=== PATIENT | male | born 1965 | race Caucasian/White ===

== ENCOUNTER 2020-02-14 14:34 | Outpatient (REF) | payer OTHER, SELFPAY | END 2020-02-14 14:35 | disposition home or self-care (01) | LOC: HO.LAB 14:34 | PROVIDERS: PCP Internal Medicine; Visit Provider Internal Medicine | DX: Z20.828 Contact with and (suspected) exposure to other viral communicable diseases (principal) | CPT/HCPCS: 87635 ==

== ENCOUNTER 2020-11-28 08:41 | Outpatient (REF) | payer OTHER, SELFPAY ==
[2020-11-28 11:12] LABS: MANUAL DIFF FLAG NO
[2020-11-28 11:24] LABS: Basophils Percent Auto 0.7 % (0-2); Eosinophils Absolute Auto 0.2 X10*3/uL (0.0-0.4); Eosinophils Percent Auto 5.9 % (0-4); Hematocrit 37.4 % (42-52); Hemoglobin 13.5 g/dl (14.0-18.0); Imm Gran Abs Auto 0.03 X10*3/uL (0.00-0.03); Imm Gran Pct Auto 1.1 % (0.0-0.4); Lymphocytes Percent Auto 37.9 % (20-40); Mean Corpuscular HGB Conc 36.1 g/dl (31.0-36.0); Mean Corpuscular Hemoglobin 32.9 pg (27.0-33.0); Mean Corpuscular Volume 91.2 fL (80-98); Mean Platelet Volume 10.6 fL (9.4-12.4); Monocytes Absolute Auto 0.3 X10*3/uL (0.1-1.2); Monocytes Percent Auto 12.3 % (2-11); Neutrophils Absolute Auto 1.1 X10*3/uL (2.0-8.3); Neutrophils Percent Auto 42.1 % (45-73); Platelet Count 186 X10*3/uL (160-400); Red Cell Distribution Width 11.6 % (11.0-16.0); White Blood Count 2.7 X10*3/uL (4.8-10.8)
[2020-11-28 11:33] LABS: Estimated Average Glucose 91 mg/dL; Hemoglobin A1c % 4.8 %
[2020-11-28 11:40] LABS: Alanine Aminotransferase 34 U/L (0-40); Albumin Level 4.4 g/dL (3.5-5.0); Alkaline Phosphatase 80 U/L (39-117); Anion Gap 12 (12-20); Aspartate Amino Transferase 31 U/L (5-37); Bilirubin Total 0.6 mg/dL (0.0-1.0); Blood Urea Nitrogen 19 mg/dL (9-16); Calcium 9.4 mg/dL (8.4-10.2); Carbon Dioxide 24 mmol/L (22-29); Chloride 105 mmol/L (96-108); Cholesterol 172 mg/dL; Estimated Glomerular Filt Rate > 60; Glucose Random 100 mg/dL (60-115); HDL Cholesterol 30 mg/dL; Potassium 4.4 mmol/L (3.3-5.1); Sodium 137 mmol/L (135-145); Total Protein 7.3 g/dL (6.5-8.0); Triglycerides 454 mg/dL
[2020-11-28 12:02] LABS: Free T4 (Free Thyroxine) 0.82 ng/dL (0.71-1.85); Thyroid Stimulating Hormone 3.47 uIU/mL (0.32-4.0)
[2020-11-28 12:05] LABS: Folate 18.6 ng/mL (> or = 4.0); Vitamin B12 322 pg/mL (200-900)
== END 2020-11-28 08:42 | disposition home or self-care (01) ==
LOC: HO.HMGCLDS 08:41
PROVIDERS: PCP Internal Medicine; Visit Provider Internal Medicine
DX: Z12.5 Encounter for screening for malignant neoplasm of prostate (principal); I10 Essential (primary) hypertension; E78.00 Pure hypercholesterolemia, unspecified; E78.1 Pure hyperglyceridemia; R73.02 Impaired glucose tolerance (oral)
CPT/HCPCS: 36415; 80053; 80061; 82607; 82746; 83036; 84153; 84439; 84443; 85025

== ENCOUNTER 2021-01-29 15:25 | Outpatient (REF) | payer OTHER, SELFPAY ==
--- NOTE | ~2021-01-29 | XR_ITS ---
EXAMINATION: XR RIBS, RIGHT CLINICAL INFORMATION: Injury. Right-sided rib pain. COMPARISON: None TECHNIQUE: 3 views of the right ribs and one view of the chest were obtained. FINDINGS: Lungs are clear. No consolidation, pneumothorax, or pleural effusion. The cardiomediastinal silhouette and pulmonary vasculature are normal. There are healing right posterior lateral eighth and ninth rib fractures. Fracture lines are still seen. There is surrounding bony callus formation. No other rib fracture is seen. There are degenerative changes of the spine. XR/XR ribs RT min 3V w CXR1V IMPRESSION: Healing right posterior lateral eighth and ninth rib fractures.
== END 2021-01-29 15:26 | disposition home or self-care (01) ==
LOC: HO.HMGCX 15:25
PROVIDERS: PCP Internal Medicine; Visit Provider Internal Medicine
DX: Z13.89 Encounter for screening for other disorder (principal)
CPT/HCPCS: 71101

== ENCOUNTER 2021-05-02 08:43 | Outpatient (REF) | payer OTHER, SELFPAY ==
[2021-05-02 09:00] LABS: MANUAL DIFF FLAG NO
[2021-05-02 09:29] LABS: Basophils Percent Auto 0.6 % (0-2); Eosinophils Absolute Auto 0.1 X10*3/uL (0.0-0.4); Eosinophils Percent Auto 3.9 % (0-4); Hemoglobin 12.9 g/dl (14.0-18.0); Imm Gran Abs Auto 0.02 X10*3/uL (0.00-0.03); Imm Gran Pct Auto 0.6 % (0.0-0.4); Immature Retic Fraction 4.7 % (2.3-13.4); Lymphocytes Absolute Auto 1.3 X10*3/uL (1.2-4.9); Lymphocytes Percent Auto 35.4 % (20-40); Mean Corpuscular HGB Conc 35.8 g/dl (31.0-36.0); Mean Corpuscular Hemoglobin 32.9 pg (27.0-33.0); Mean Corpuscular Volume 91.8 fL (80.0-98.0); Mean Platelet Volume 10.7 fL (9.4-12.4); Monocytes Absolute Auto 0.5 X10*3/uL (0.1-1.2); Monocytes Percent Auto 12.9 % (2-11); Neutrophils Absolute Auto 1.7 x10*3/uL (2.0-8.3); Neutrophils Percent Auto 46.6 % (45-73); Platelet Count 185 X10*3/uL (160-400); Red Blood Count 3.92 X10*6/uL (4.60-5.80); Red Cell Distribution Width 11.3 % (11.0-16.0); Retic HGB Equivalent 35.3 pg (30.0-35.0); Reticulocyte Percent 1.9 % (0.5-1.8); Reticulocytes Absolute 0.073 X10*6/uL (0.026-0.095); White Blood Count 3.6 X10*3/uL (4.8-10.8)
[2021-05-02 09:38] LABS: Estimated Average Glucose 91 mg/dL; Hemoglobin A1C 99.9697 umol/L; Hemoglobin A1c % 4.8 %
[2021-05-02 09:52] LABS: Alanine Aminotransferase 38 U/L (0-40); Albumin Level 4.1 g/dL (3.5-5.0); Alkaline Phosphatase 56 U/L (39-117); Anion Gap 10 (12-20); Aspartate Amino Transferase 24 U/L (5-37); Bilirubin Total 0.9 mg/dL (0.0-1.0); Blood Urea Nitrogen 21 mg/dL (9-16); Carbon Dioxide 27 mmol/L (22-29); Chloride 105 mmol/L (96-108); Cholesterol 138 mg/dL; Estimated Glomerular Filt Rate > 60; Glucose Random 104 mg/dL (60-115); HDL Cholesterol 32 mg/dL; Iron 137 mcg/dL (45-160); LDL Cholesterol Calculated 74 mg/dl; Percent Iron Saturation 46 % (15-50); Potassium 4.7 mmol/L (3.3-5.1); Sodium 137 mmol/L (135-145); Total Iron Binding Capacity 297 mcg/dL (228-428); Total Protein 6.6 g/dL (6.5-8.0); Triglycerides 161 mg/dL; Unsaturated Iron Binding 160 ug/dL
[2021-05-02 10:53] LABS: Ferritin 1602 ng/mL (20-250)
== END 2021-05-02 08:44 | disposition home or self-care (01) ==
LOC: HO.LAB 08:43
PROVIDERS: PCP Internal Medicine; Visit Provider Internal Medicine
DX: E78.00 Pure hypercholesterolemia, unspecified (principal); E78.1 Pure hyperglyceridemia; M54.9 Dorsalgia, unspecified; R73.02 Impaired glucose tolerance (oral)
CPT/HCPCS: 36415; 80053; 80061; 82728; 83036; 83540; 85025; 85045

== ENCOUNTER 2021-10-23 08:33 | Outpatient (REF) | payer OTHER, SELFPAY ==
[2021-10-23 09:06] LABS: MANUAL DIFF FLAG NO
[2021-10-23 09:40] LABS: Basophils Percent Auto 1.2 % (0-2); Eosinophils Absolute Auto 0.2 X10*3/uL (0.0-0.4); Eosinophils Percent Auto 4.7 % (0-4); Hematocrit 38.1 % (42.0-52.0); Hemoglobin 13.6 g/dl (14.0-18.0); Imm Gran Abs Auto 0.01 X10*3/uL (0.00-0.03); Imm Gran Pct Auto 0.3 % (0.0-0.4); Immature Retic Fraction 6.3 % (2.3-13.4); Lymphocytes Absolute Auto 1.2 X10*3/uL (1.2-4.9); Lymphocytes Percent Auto 36.5 % (20-40); Mean Corpuscular HGB Conc 35.7 g/dl (31.0-36.0); Mean Corpuscular Hemoglobin 32.5 pg (27.0-33.0); Mean Corpuscular Volume 91.1 fL (80.0-98.0); Mean Platelet Volume 10.7 fL (9.4-12.4); Monocytes Absolute Auto 0.4 X10*3/uL (0.1-1.2); Monocytes Percent Auto 12.8 % (2-11); Neutrophils Absolute Auto 1.5 x10*3/uL (2.0-8.3); Neutrophils Percent Auto 44.5 % (45-73); Platelet Count 211 X10*3/uL (160-400); Red Blood Count 4.18 X10*6/uL (4.60-5.80); Red Cell Distribution Width 11.9 % (11.0-16.0); Reticulocytes Absolute 0.085 X10*6/uL (0.026-0.095); White Blood Count 3.4 X10*3/uL (4.8-10.8)
[2021-10-23 09:55] LABS: Estimated Average Glucose 91 mg/dL; Hemoglobin A1c % 4.8 %
[2021-10-23 10:14] LABS: Alanine Aminotransferase 37 U/L (0-40); Albumin Level 4.4 g/dL (3.5-5.0); Alkaline Phosphatase 56 U/L (39-117); Anion Gap 11 (12-20); Aspartate Amino Transferase 27 U/L (5-37); Blood Urea Nitrogen 15 mg/dL (9-16); Calcium 9.5 mg/dL (8.4-10.2); Carbon Dioxide 27 mmol/L (22-29); Chloride 104 mmol/L (96-108); Cholesterol 169 mg/dL; Estimated Glomerular Filt Rate > 60; Glucose Random 107 mg/dL (60-115); HDL Cholesterol 35 mg/dL; Iron 151 mcg/dL (45-160); LDL Cholesterol Calculated 105 mg/dl; Percent Iron Saturation 50 % (15-50); Potassium 5.2 mmol/L (3.3-5.1); Sodium 137 mmol/L (135-145); Total Iron Binding Capacity 302 mcg/dL (228-428); Total Protein 7.1 g/dL (6.5-8.0); Triglycerides 147 mg/dL; Unsaturated Iron Binding 151 ug/dL
[2021-10-23 10:27] LABS: Ferritin 1076 ng/mL (20-250)
[2021-10-23 10:42] LABS: Folate 17.8 ng/mL (> or = 4.0); Vitamin B12 350 pg/mL (200-900)
== END 2021-10-23 08:34 | disposition home or self-care (01) ==
LOC: HO.LAB 08:33
PROVIDERS: PCP Internal Medicine; Visit Provider Internal Medicine
DX: E78.00 Pure hypercholesterolemia, unspecified (principal); E78.1 Pure hyperglyceridemia; R73.02 Impaired glucose tolerance (oral); R79.89 Other specified abnormal findings of blood chemistry
CPT/HCPCS: 36415; 80053; 80061; 82607; 82728; 82746; 83036; 83540; 85025; 85045

== ENCOUNTER 2022-04-09 10:01 | Outpatient (REF) | payer OTHER, SELFPAY ==
[2022-04-09 12:24] LABS: Free T4 (Free Thyroxine) 0.86 ng/dL (0.71-1.85); Prostate Specific Antigen Scr 0.68 ng/mL (<0.05-4.0); Thyroid Stimulating Hormone 2.49 uIU/mL (0.32-4.0)
== END 2022-04-09 10:02 | disposition home or self-care (01) ==
LOC: HO.HMGCLDS 10:01
PROVIDERS: PCP Internal Medicine; Visit Provider Internal Medicine
DX: I10 Essential (primary) hypertension (principal); Z12.5 Encounter for screening for malignant neoplasm of prostate
CPT/HCPCS: 36415; 84153; 84439; 84443

== ENCOUNTER 2022-10-22 13:14 | Outpatient (REF) | payer OTHER, SELFPAY ==
[2022-10-22 14:26] LABS: Estimated Average Glucose 88 mg/dL; Hemoglobin A1c % 4.7 %
[2022-10-22 14:48] LABS: Cholesterol 139 mg/dL; HDL Cholesterol 34 mg/dL; LDL Cholesterol Calculated 58 mg/dl; Triglycerides 236 mg/dL
[2022-10-22 15:03] LABS: Free T4 (Free Thyroxine) 0.77 ng/dL (0.71-1.85); Thyroid Stimulating Hormone 2.86 uIU/mL (0.32-4.0)
[2022-10-22 15:14] LABS: Folate 12.6 ng/mL (> or = 4.0); Prostate Specific Antigen Scr 0.65 ng/mL (<0.05-4.0); Vitamin B12 325 pg/mL (200-900)
== END 2022-10-22 13:15 | disposition home or self-care (01) ==
LOC: HO.HMGCLDS 13:14
PROVIDERS: PCP Internal Medicine; Visit Provider Internal Medicine
DX: E78.1 Pure hyperglyceridemia (principal); R73.02 Impaired glucose tolerance (oral); E78.00 Pure hypercholesterolemia, unspecified; Z12.5 Encounter for screening for malignant neoplasm of prostate
CPT/HCPCS: 36415; 80061; 82607; 82746; 83036; 84153; 84439; 84443

== ENCOUNTER 2023-07-31 07:35 | Outpatient (REF) | payer OTHER, SELFPAY | END 2023-07-31 07:36 | disposition home or self-care (01) | LOC: HO.LAB 07:35 | PROVIDERS: PCP Internal Medicine; Visit Provider Internal Medicine | DX: Z13.89 Encounter for screening for other disorder (principal) ==

== ENCOUNTER 2023-08-03 07:30 | Outpatient (REF) | payer OTHER, SELFPAY ==
[2023-08-03 07:40] LABS: MANUAL DIFF FLAG NO
[2023-08-03 08:02] LABS: Basophils Percent Auto 0.9 % (0-2); Eosinophils Absolute Auto 0.2 X10*3/uL (0.0-0.4); Eosinophils Percent Auto 3.5 % (0-4); Hematocrit 40.2 % (42.0-52.0); Hemoglobin 14.6 g/dl (14.0-18.0); Imm Gran Abs Auto 0.02 X10*3/uL (0.00-0.03); Imm Gran Pct Auto 0.4 % (0.0-0.4); Lymphocytes Absolute Auto 1.7 X10*3/uL (1.2-4.9); Lymphocytes Percent Auto 38.2 % (20-40); Mean Corpuscular HGB Conc 36.3 g/dl (31.0-36.0); Mean Corpuscular Hemoglobin 32.8 pg (27.0-33.0); Mean Corpuscular Volume 90.3 fL (80.0-98.0); Monocytes Absolute Auto 0.5 X10*3/uL (0.1-1.2); Monocytes Percent Auto 11.4 % (2-11); Neutrophils Absolute Auto 2.1 x10*3/uL (2.0-8.3); Neutrophils Percent Auto 45.6 % (45-73); Platelet Count 230 X10*3/uL (160-400); Red Blood Count 4.45 X10*6/uL (4.60-5.80); Red Cell Distribution Width 11.6 % (11.0-16.0); White Blood Count 4.6 X10*3/uL (4.8-10.8)
[2023-08-03 08:28] LABS: Anion Gap 12 (12-20); Blood Urea Nitrogen 18 mg/dL (9-16); Calcium 9.4 mg/dL (8.4-10.2); Carbon Dioxide 28 mmol/L (22-29); Chloride 108 mmol/L (96-108); Estimated Glomerular Filt Rate > 60; Glucose Random 106 mg/dL (60-115); Potassium 4.7 mmol/L (3.3-5.1); Sodium 143 mmol/L (135-145)
== END 2023-08-03 07:31 | disposition home or self-care (01) ==
LOC: HO.LAB 07:30
PROVIDERS: PCP Internal Medicine; Visit Provider Internal Medicine
DX: Z01.818 Encounter for other preprocedural examination (principal)
CPT/HCPCS: 36415; 80048; 85025

== ENCOUNTER 2023-08-06 13:34 | Outpatient (AMB) | payer OTHER, SELFPAY ==
--- NOTE | 2023-08-06 13:00 | MHC.PC.OV ---
Vital Signs 08/06/23 13:03 Height 5 ft 8 in Weight 171 lb 0.2 oz BMI 26.0 BP 132/64 Blood Pressure Location Lt brachial Position Sitting Pulse 90 Pulse Source Pulse Oximeter Pulse Oximetry (%) 97 Oxygen Delivery Method Room Air Intake Visit Reasons: cataract on left eye 08/20/23 Intake Note: Patient is here for a Pre-op for Cataract on LEFT EYE scheduled with Pam Phipps M.D on 08/20/2023 Allergies Bee stings Allergy (Intermediate, Uncoded 08/06/23 13:03) Rash Penicillin Allergy (Intermediate, Uncoded 08/06/23 13:03) Rash Medication List - Last Reconciled 08/06/23 by Mery Kaplan MD irbesartan 300 mg PO DAILY 90 days Tobacco use date assessed: 08/06/23 Dental Screening Dental Screen Date: 08/06/23 Did you have a dental visit in the last 12 months?: Yes Did you have a dental problem in the last 6 months where you did not have access to dental care?: No Was dental information given to patient?: Patient has dentist HPI cataract on left eye 08/20/23 HPI Details 57-year-old overweight male with a history of elevated ferritin level with anemia hypercholesterolemia hypertension impaired glucose tolerance coming in for preoperative evaluation for cataract surgery last seen in October 2022. Patient is up-to-date with colonoscopy. Schedule for 08/20/2023 [facility] Medical History (Updated 08/06/23 @ 14:18 by Mery Kaplan MD) Fall Annual physical exam Vision changes Family history of pancreatic cancer Neck pain Non-healing wound of left lower extremity Anemia Hypertriglyceridemia Hypertension Vitamin B12 deficiency Impaired glucose tolerance Surgical History History of tonsillectomy Family History Father Pancreatic cancer CVA (cerebral vascular accident) Mother Liver disease Brother Substance abuse Sister No problems noted. Social History (Updated 08/06/23 @ 14:21 by Mery Kaplan MD) Household Members: None Housing: Apartment Are you a primary managed care provider to a significant other at home: No Do you presently have visiting nurse or other home services: No Alcohol intake: current Alcohol intake frequency: a few times a week Comment: QD 2-3 drinks Patient Tobacco Use Status: Never used Tobacco Years Smoked: Marijuana once a week e-Cigarette/Vaping Use: Never Used Second Hand Smoke Exposure: No Substance Use Type: Marijuana service: No Current occupational status: employed Cognitive needs: No Hearing needs: No Vision needs: No Questionnaire PHQ-9 Over the last 2 weeks, how often have you been bothered by any of the following problems? 1. Little interest or pleasure in doing things: not at all 2. Feeling down, depressed, or hopeless: not at all 3. Trouble falling or staying asleep, or sleeping too much: not at all 4. Feeling tired or having little energy: not at all 5. Poor appetite or overeating: not at all 6. Feeling bad about yourself - or that you are a failure or have let yourself or your family down: not at all 7. Trouble concentrating on things, such as reading the newspaper or watching television: not at all 8. Moving or speaking so slowly that other people could have noticed. Or the opposite - being so fidgety or restless that you have been moving around a lot more than usual: not at all 9. Thoughts that you would be better off or of hurting yourself in some way: not at all Total score: 0 Depression Screening Interpretation: Negative Depression Screening Done: Yes 34106 - PHQ-9 Billing: Yes Source: Developed by Drs. Quinton Lee, Kellee Mary, Andrew Diaz and colleagues, with an educational renetta from [employer]. Thrive Questionnaire Date Thrive assessed: 10/30/22 AUDIT C Alcohol Use Questionnaire (AUDIT-C) 1. How often do you have a drink containing alcohol?: 4 or more times a week 2. How many drinks containing alcohol do you have on a typical day when you are drinking?: 1 or 2 3. How often do you have six or more drinks on one occasion?: Never Total Score: 4 JIM-7 AMB Questionnaire JIM-7 Date JIM - 7 assessed: 08/06/23 Feeling nervous, anxious, or on edge: 0 = Not at all Not being able to stop or control worryin = Not at all Worrying too much about different things: 0 = Not at all Trouble relaxin = Not at all Being so restless that it is hard to sit still: 0 = Not at all Becoming easily annoyed or irritable: 0 = Not at all Feeling afraid as if something awful might happen: 0 = Not at all Total JIM-7 score (0-4 normal; 5-9 mild; 10-14 moderate; 15-21 severe): 0 Source: Developed by Drs. Quinton Lee, Kellee Mary, Andrew Diaz and colleagues, with an educational renetta from [employer]. JIM-7 Assessment Billing JIM-7 Assessment Tool: JIM-7 Assessment 28734 Review of Systems Const Denies poor appetite and Denies weakness Eyes Denies no additional complaints ENT Reports Normal hearing present, Denies dizziness, Denies nasal congestion, Denies tinnitus and Denies sore throat Card Denies chest pain, Denies syncope, Denies rapid heart rate and Denies dyspnea Resp Denies cough and Denies dyspnea GI Denies change in stool character, Reports constipation, Denies diarrhea, Denies nausea and Denies vomiting Denies dysuria and Denies urinary frequency Neuro Reports Normal hearing present, Denies confusion, Denies dizziness, Denies syncope and Denies weakness Psych Denies confusion Physical exam (Primary Care) Vital Signs: Last Vital Signs Pulse 90 08/06/23 13:03 BP 132/64 08/06/23 13:03 Pulse Ox 97 08/06/23 13:03 Oxygen Delivery Method Room Air 08/06/23 13:03 BMI result Body Mass Index 26.0 Tobacco/Smoking Status: Tobacco use Status Tobacco use date assessed 08/06/23 08/06/23 13:03 Patient Tobacco Use Status Never used Tobacco 08/06/23 13:03 e-Cigarette/Vaping Use Never Used 08/06/23 13:03 PHQ-9: PHQ-9 Score PHQ-9: Total score 0 08/06/23 13:43 Depression Screening Interpretation: Negative Thrive Assessment: Date of Thrive Assessment Date Thrive assessed 10/30/22 08/06/23 13:03 Const General: No confusion Orientation/consciousness: No confusion Neuro General: No confusion Cranial nerves: Yes Normal hearing present Assessment and Plan Assessment & Plan (1) Preop exam for internal medicine: Code(s): Z01.818 - Encounter for other preprocedural examination Plan: Blood work and EKG evaluated. (2) Hypertension: Code(s): I10 - Essential (primary) hypertension Qualifiers: Hypertension type: essential hypertension Qualified Code(s): I10 - Essential (primary) hypertension Plan: Continue with blood pressure medication. Decrease salt intake and exercise continue with irbesartan 300 mg once a day (3) Impaired glucose tolerance: Code(s): R73.02 - Impaired glucose tolerance (oral) Plan: Decrease the amount of carbohydrate intake, pasta, bread, rice and potatoes are all sugar and that is aside from all the sweet stuff, remember that fruits are good but they are Sweet also. (4) Hypertriglyceridemia: Code(s): E78.1 - Pure hyperglyceridemia Plan: Avoid fried foods, chicken skin, eggs, butter margarine, pastries and meat. Be it pork or beef they have a lot of cholesterol (5) Cataract: Code(s): H26.9 - Unspecified cataract Orders: Orders ECG 12 lead EKG Today Z01.818 - Encounter for other preprocedural examination Coding Level of Care Code Est Pt Level 4 (85158) Diagnoses Preop exam for internal medicine Z01.818 Essential hypertension I10 Hypertension type: essential hypertension Impaired glucose tolerance R73.02 Hypertriglyceridemia E78.1 Cataract H26.9 Additional Codes JIM-7 Assessment Billing - JIM-7 Assessment Tool: JIM-7 Assessment [id number] ([id number])
[2023-08-06 13:03] VITALS: BP 132/64; PULSE 90; O2SAT 97; BMI 26.0
== END 2023-08-06 14:28 | disposition home or self-care (01) ==
PROVIDERS: PCP Internal Medicine; Visit Provider Internal Medicine
DX: Z01.818 Encounter for other preprocedural examination (principal); I10 Essential (primary) hypertension; R73.02 Impaired glucose tolerance (oral); E78.1 Pure hyperglyceridemia; H26.9 Unspecified cataract
CPT/HCPCS: 99214

== ENCOUNTER → 2023-08-06 14:32 | Outpatient (REF) | payer OTHER, SELFPAY ==
--- NOTE | 2023-08-06 14:38 | ECG_ITS ---
Test Reason : preop Blood Pressure : / mmHG Vent. Rate : 080 BPM Atrial Rate : 080 BPM P-R Int : 164 ms QRS Dur : 094 ms QT Int : 390 ms P-R-T Axes : -06 073 031 degrees QTc Int : 449 ms Sinus rhythm with Premature atrial complexes Otherwise normal ECG No previous ECGs available Referred By: Mery Kaplan Electronically Signed By:LORRAINE PEMBERTON MD
== END ==
LOC: HO.CARD 14:32
PROVIDERS: PCP Internal Medicine; Visit Provider Internal Medicine
DX: Z01.818 Encounter for other preprocedural examination (principal)
CPT/HCPCS: 93005

== ENCOUNTER → 2023-08-06 14:38 | Outpatient (BNV) | payer OTHER, SELFPAY | PROVIDERS: PCP Internal Medicine; Visit Provider Internal Medicine Cardiovascular Disease | DX: I49.1 Atrial premature depolarization (principal) | CPT/HCPCS: 93010 ==

== ENCOUNTER 2023-10-29 08:49 | Outpatient (REF) | payer OTHER, SELFPAY ==
[2023-10-29 11:40] LABS: MANUAL DIFF FLAG NO
[2023-10-29 11:45] LABS: Basophils Percent Auto 1.1 % (0-2); Eosinophils Absolute Auto 0.1 X10*3/uL (0.0-0.4); Eosinophils Percent Auto 3.9 % (0-4); Hematocrit 38.3 % (42.0-52.0); Hemoglobin 13.6 g/dl (14.0-18.0); Imm Gran Abs Auto 0.03 X10*3/uL (0.00-0.03); Imm Gran Pct Auto 1.1 % (0.0-0.4); Lymphocytes Absolute Auto 1.2 X10*3/uL (1.2-4.9); Lymphocytes Percent Auto 44.1 % (20-40); Mean Corpuscular HGB Conc 35.5 g/dl (31.0-36.0); Mean Corpuscular Hemoglobin 32.5 pg (27.0-33.0); Mean Corpuscular Volume 91.6 fL (80.0-98.0); Monocytes Absolute Auto 0.3 X10*3/uL (0.1-1.2); Monocytes Percent Auto 11.7 % (2-11); Neutrophils Absolute Auto 1.1 x10*3/uL (2.0-8.3); Neutrophils Percent Auto 38.1 % (45-73); Platelet Count 186 X10*3/uL (160-400); Red Blood Count 4.18 X10*6/uL (4.60-5.80); Red Cell Distribution Width 11.7 % (11.0-16.0); White Blood Count 2.8 X10*3/uL (4.8-10.8)
[2023-10-29 11:56] LABS: Estimated Average Glucose 94 mg/dL; Hemoglobin A1c % 4.9 % (<6.0)
[2023-10-29 12:09] LABS: Alanine Aminotransferase 44 U/L (0-40); Albumin Level 4.3 g/dL (3.5-5.0); Alkaline Phosphatase 60 U/L (39-117); Anion Gap 13 (12-20); Aspartate Amino Transferase 37 U/L (5-37); Bilirubin Total 0.5 mg/dL (0.0-1.0); Blood Urea Nitrogen 17 mg/dL (9-16); Calcium 9.6 mg/dL (8.4-10.2); Carbon Dioxide 24 mmol/L (22-29); Chloride 107 mmol/L (96-108); Cholesterol 155 mg/dL (<200); Estimated Glomerular Filt Rate > 60; Glucose Random 108 mg/dL (60-115); HDL Cholesterol 35 mg/dL (>40); LDL Cholesterol Calculated 92 mg/dL (<100); Potassium 4.9 mmol/L (3.3-5.1); Sodium 139 mmol/L (135-145); Total Protein 7.3 g/dL (6.5-8.0); Triglycerides 143 mg/dL (<150)
[2023-10-29 12:35] LABS: Folate 8.3 ng/mL (> or = 4.0); Prostate Specific Antigen Scr 0.79 ng/mL (<0.05-4.0); Vitamin B12 304 pg/mL (200-900)
[2023-10-29 12:44] LABS: Free T4 (Free Thyroxine) 0.76 ng/dL (0.71-1.85); Thyroid Stimulating Hormone 2.74 uIU/mL (0.32-4.0)
== END 2023-10-29 08:50 | disposition home or self-care (01) ==
LOC: HO.HMGCLDS 08:49
PROVIDERS: PCP Internal Medicine; Visit Provider Internal Medicine
DX: I10 Essential (primary) hypertension (principal); E78.00 Pure hypercholesterolemia, unspecified; Z12.5 Encounter for screening for malignant neoplasm of prostate; Z13.1 Encounter for screening for diabetes mellitus
CPT/HCPCS: 36415; 80053; 80061; 82607; 82746; 83036; 84153; 84439; 84443; 85025

== ENCOUNTER 2023-11-03 16:01 | Outpatient (AMB) | payer OTHER, SELFPAY ==
[2023-11-03 16:02] VITALS: BP 140/80; PULSE 78; O2SAT 98; BMI 25.1
--- NOTE | 2023-11-03 16:02 | A.OFFPC_ITS ---
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 Patient is here for physical exam. Last colonoscopy was done in 2015. FORMERLY [facility], [facility] Medical History (Updated 11/03/23 @ 16:56 by Mery Kaplan MD) Annual physical exam Anemia Preop exam for internal medicine Fall Vision changes Family history of pancreatic cancer Neck pain Non-healing wound of left lower extremity Hypertriglyceridemia Hypertension Vitamin B12 deficiency Impaired glucose tolerance Surgical History (Updated 11/03/23 @ 16:51 by Mery Kaplan MD) Cataract History of tonsillectomy Family History (Reviewed 10/30/22 @ 16:24 by [place] [facility]) Father Pancreatic cancer CVA (cerebral vascular accident) Mother Liver disease Brother Substance abuse Sister No problems noted. Social History (Updated 08/06/23 @ 14:21 by Mery Kaplan MD) Household Members: None Housing: Apartment Are you a primary career technical education instructor to a significant other at home: No Do you presently have visiting nurse or other home services: No Alcohol intake: current Alcohol intake frequency: a few times a week Comment: QD 2-3 drinks Patient Tobacco Use Status: Never used Tobacco Years Smoked: Marijuana once a week e-Cigarette/Vaping Use: Never Used Second Hand Smoke Exposure: No Substance Use Type: Marijuana service: No Current occupational status: employed Cognitive needs: No Hearing needs: No Vision needs: No Questionnaire Thrive Questionnaire Date Thrive assessed: 10/30/22 JIM-7 AMB Questionnaire JIM-7 Date JIM - 7 assessed: 08/06/23 Source: Developed by Drs. Quinton Lee, Kellee Mary, Andrew Diaz and colleagues, with an educational renetta from [employer]. Review of Systems Const Denies poor appetite and Denies weakness Eyes Denies no additional complaints ENT Reports Normal hearing present, Denies dizziness, Denies nasal congestion, Denies tinnitus and Denies sore throat Card Denies chest pain, Denies syncope, Denies rapid heart rate and Denies dyspnea Resp Denies cough and Denies dyspnea GI Denies change in stool character, Reports constipation, Denies diarrhea, Denies nausea and Denies vomiting Denies dysuria and Denies urinary frequency Neuro Reports Normal hearing present, Denies confusion, Denies dizziness, Denies syncope and Denies weakness Psych Denies confusion Physical exam (Primary Care) Vital Signs: Last Vital Signs Pulse 78 11/03/23 16:02 BP 140/80 H 11/03/23 16:02 Pulse Ox 98 11/03/23 16:02 Oxygen Delivery Method Room Air 11/03/23 16:02 BMI result Body Mass Index 25.1 Tobacco/Smoking Status: Tobacco use Status Tobacco use date assessed 08/06/23 11/03/23 16:03 Patient Tobacco Use Status Never used Tobacco 11/03/23 16:03 e-Cigarette/Vaping Use Never Used 11/03/23 16:03 Thrive Assessment: Date of Thrive Assessment Date Thrive assessed 10/30/22 11/03/23 16:03 Const General: No confusion Orientation/consciousness: No confusion HENMT Head: Yes normocephalic Ears: external ears normal and TM's normal bilaterally Face and sinus: Yes normal facial exam Mouth: moist mucous membranes Throat: Yes tonsils normal Eyes Conjunctivae: conjunctivae normal Pupils: Equal, round and reactive pupils present and Pupil accommodation reflex normal Direct Ophthalmoscopy: normal light reflex Neck Neck: No lymphadenopathy Thyroid: Thyroid normal Chest Chest palpation & inspection: normal inspection of the chest Resp Effort & Inspection: normal respiratory effort and no audible wheezes Auscultation: clear to auscultation bilaterally, no crackles, no wheezes and lung sounds not diminished Cardio Rate: regular rate Rhythm: regular rhythm Peripheral pulses: radial pulses present and dorsalis pedis present GI Other: Guaiac negative stools prostate normal Palpation (GI): no masses Auscultation: normal bowel sounds and normoactive bowel sounds Male General Exam: Yes normal external exam Skin General skin exam: no rashes or lesions noted Rashes: no rashes Neuro General: No confusion Cranial nerves: Yes Equal, round and reactive pupils present and Yes Normal hearing present Cognition (Neuro): normal cognition Gait exam (Neuro): Normal gait present Motor exam (neuro): 5/5 motor strength present throughout Deep tendon reflexes (DTR's): Right brachioradialis reflex intensity grade: 2+, Left brachioradialis reflex intensity grade: 2+, Right patellar reflex intensity grade: 2+ and Left patellar reflex intensity grade: 2+ Extrem General: No edema Assessment and Plan Assessment & Plan (1) Annual physical exam: Code(s): Z00.00 - Encounter for general adult medical examination without abnormal findings Plan: Patient is advised to eat healthy, keep well hydrated, keep active and have adequate sleep. (2) Anemia: Code(s): D64.9 - Anemia, unspecified Plan: Will have to follow-up on this. Patient also follows up with Hematology- Oncology (3) Impaired glucose tolerance: Code(s): R73.02 - Impaired glucose tolerance (oral) Plan: Decrease the amount of carbohydrate intake, pasta, bread, rice and potatoes are all sugar and that is aside from all the sweet stuff, remember that fruits are good but they are Sweet also. (4) Hypertension: Code(s): I10 - Essential (primary) hypertension Qualifiers: Hypertension type: essential hypertension Qualified Code(s): I10 - Essential (primary) hypertension Plan: Continue with blood pressure medication. Decrease salt intake and exercise on irbesartan 300 mg once a day (5) Hypertriglyceridemia: Code(s): E78.1 - Pure hyperglyceridemia Plan: Avoid fried foods, chicken skin, eggs, butter margarine, pastries and meat. Be it pork or beef they have a lot of cholesterol (6) Elevated ferritin level: Code(s): R79.89 - Other specified abnormal findings of blood chemistry Plan: Patient has been seen by hematology oncology and has been advised to decrease alcohol intake and having phlebotomy. (7) LFT elevation: Code(s): R79.89 - Other specified abnormal findings of blood chemistry Plan: Ultrasound as well as repeat blood work requested Orders: Orders Comprehensive Met. Panel Today R79.89 - Other specified abnormal findings of blood chemistry Reticulocyte Count Today D64.9 - Anemia, unspecified Hepatitis B,C Profile Today R7.89 - Other specified abnormal findings of blood chemistry Complete Blood Count Auto Diff Today D64.9 - Anemia, unspecified Ferritin Today D64.9 - Anemia, unspecified IRON PROFILE Today D64.9 - Anemia, unspecified US abdomen complete Today R79.89 - Other specified abnormal findings of blood chemistry Coding Level of Care Code Est Pt Prev Care 40-64y(19985) Diagnoses Annual physical exam Z00.00 Anemia D64.9 Impaired glucose tolerance R73.02 Essential hypertension I10 Hypertension type: essential hypertension Hypertriglyceridemia E78.1 Elevated ferritin level R79.89 LFT elevation R79.89
[2023-11-03 16:49] VITALS: BP 120/70
== END 2023-11-03 17:08 | disposition home or self-care (01) ==
PROVIDERS: PCP Internal Medicine; Visit Provider Internal Medicine
DX: Z00.00 Encounter for general adult medical examination without abnormal findings (principal); D64.9 Anemia, unspecified; R73.02 Impaired glucose tolerance (oral); I10 Essential (primary) hypertension; E78.1 Pure hyperglyceridemia; R79.89 Other specified abnormal findings of blood chemistry
CPT/HCPCS: 99396

== ENCOUNTER 2023-11-13 14:09 | Outpatient (REF) | payer OTHER, SELFPAY ==
[2023-11-13 14:23] LABS: MANUAL DIFF FLAG NO
[2023-11-13 15:01] LABS: Basophils Percent Auto 0.8 % (0-2); Eosinophils Absolute Auto 0.1 X10*3/uL (0.0-0.4); Eosinophils Percent Auto 2.1 % (0-4); Hematocrit 34.3 % (42.0-52.0); Hemoglobin 12.3 g/dl (14.0-18.0); Imm Gran Abs Auto 0.01 X10*3/uL (0.00-0.03); Imm Gran Pct Auto 0.3 % (0.0-0.4); Immature Retic Fraction 6.4 % (2.3-13.4); Lymphocytes Absolute Auto 1.1 X10*3/uL (1.2-4.9); Lymphocytes Percent Auto 29.3 % (20-40); Mean Corpuscular HGB Conc 35.9 g/dl (31.0-36.0); Mean Corpuscular Hemoglobin 33.2 pg (27.0-33.0); Mean Corpuscular Volume 92.5 fL (80.0-98.0); Mean Platelet Volume 10.8 fL (9.4-12.4); Monocytes Absolute Auto 0.4 X10*3/uL (0.1-1.2); Monocytes Percent Auto 10.4 % (2-11); Neutrophils Absolute Auto 2.2 x10*3/uL (2.0-8.3); Neutrophils Percent Auto 57.1 % (45-73); Platelet Count 182 X10*3/uL (160-400); Red Blood Count 3.71 X10*6/uL (4.60-5.80); Red Cell Distribution Width 11.9 % (11.0-16.0); Reticulocytes Absolute 0.076 X10*6/uL (0.026-0.095); White Blood Count 3.9 X10*3/uL (4.8-10.8)
[2023-11-13 16:05] LABS: Alanine Aminotransferase 35 U/L (0-40); Albumin Level 4.1 g/dL (3.5-5.0); Alkaline Phosphatase 52 U/L (39-117); Anion Gap 10 (12-20); Aspartate Amino Transferase 24 U/L (5-37); Bilirubin Total 1.1 mg/dL (0.0-1.0); Blood Urea Nitrogen 23 mg/dL (9-16); Calcium 9.2 mg/dL (8.4-10.2); Carbon Dioxide 24 mmol/L (22-29); Chloride 109 mmol/L (96-108); Estimated Glomerular Filt Rate > 60; Glucose Random 102 mg/dL (60-115); Iron 193 mcg/dL (45-160); Percent Iron Saturation 76 % (15-50); Potassium 4.3 mmol/L (3.3-5.1); Sodium 139 mmol/L (135-145); Total Iron Binding Capacity 254 mcg/dL (228-428); Total Protein 6.9 g/dL (6.5-8.0); Unsaturated Iron Binding 61 ug/dL
[2023-11-13 16:23] LABS: Ferritin 1046 ng/mL (20-250)
[2023-11-16 05:20] LABS: HBS Num1 0.32 mIU/mL (0-7.99); HBc Num1 0.11 S/CO (0.00-0.79); HBsAGNum1 0.27 S/CO (0.00-0.99); Hepatitis B Core Antibody Nonreactive (Nonreactive); Hepatitis B Surface Antigen Negative (Negative); ~HepC Num1 0.13 S/CO (0.00-0.79); ~Hepatitis B Surface Antibody NONREACTIVE (Nonreactive); ~Hepatitis C Antibody Nonreactive (Nonreactive)
== END 2023-11-13 14:10 | disposition home or self-care (01) ==
LOC: HO.LAB 14:09
PROVIDERS: PCP Internal Medicine; Visit Provider Internal Medicine
DX: D64.9 Anemia, unspecified (principal); R79.89 Other specified abnormal findings of blood chemistry
CPT/HCPCS: 36415; 80053; 82728; 83540; 85025; 85045; 86704; 86706; 86803; 87340

== ENCOUNTER 2023-11-17 07:45 | Outpatient (REF) | payer OTHER, SELFPAY ==
--- NOTE | ~2023-11-17 | US_ITS ---
EXAMINATION: US ABDOMEN COMPLETE CLINICAL INFORMATION: Other specified abnormal findings of blood chemistry. COMPARISON: None available. TECHNIQUE: Real-time imaging of the abdominal viscera. FINDINGS: PANCREAS: Limited. The visualized pancreatic head and body are normal in appearance. The remainder of the pancreas is obscured from visualization by the overlying bowel gas. ABDOMINAL AORTA: The proximal and distal segments appear patent. The mid segment is poorly visualized due to overlapping bowel gas. INFERIOR VENA CAVA: Visualized portions are normal. LIVER: The liver is normal in size. The liver contour is normal. There is diffuse increased liver parenchymal echogenicity. No focal hepatic lesion. There is no intrahepatic biliary duct dilatation seen. GALLBLADDER: Normal. The gallbladder is physiologically distended without evidence of stones, sludge, polyps, wall thickening or pericholecystic fluid. COMMON BILE DUCT: Normal in caliber measuring 0.4 cm in diameter. RIGHT KIDNEY: Normal. No hydronephrosis. No renal calculi or focal parenchymal lesions. The kidney measures 9.7 cm in maximum dimension. LEFT KIDNEY: Normal. No hydronephrosis. No renal calculi or focal parenchymal lesions. The kidney measures 10.4 cm in maximum dimension. SPLEEN: Normal. The spleen measures 11.6 cm in maximum dimension. FREE FLUID: None. US/US abdomen complete IMPRESSION: 1. There is generalized increase in hepatic echotexture, consistent with fatty infiltration or hepatocellular disease. Please correlate clinically. No focal hepatic mass or intrahepatic biliary dilatation is seen. 2. Technically limited ultrasound examination of the pancreas and abdominal great vessels.
== END 2023-11-17 07:46 | disposition home or self-care (01) ==
LOC: HO.US 07:45
PROVIDERS: PCP Internal Medicine; Visit Provider Internal Medicine
DX: R79.89 Other specified abnormal findings of blood chemistry (principal)
CPT/HCPCS: 76700

== ENCOUNTER 2024-05-16 15:46 | Outpatient (AMB) | payer OTHER, SELFPAY ==
--- NOTE | 2024-05-16 15:53 | A.OFFPC_ITS ---
Vital Signs 05/16/24 15:54 Height 5 ft 8 in Weight 179 lb 8 oz BMI 27.3 BP 132/78 Blood Pressure Location Lt brachial Position Sitting Pulse 87 Pulse Source Pulse Oximeter Pulse Oximetry (%) 98 Oxygen Delivery Method Room Air Intake Visit Reasons: Hypertension Allergies Bee stings Allergy (Intermediate, Uncoded 05/16/24 15:57) Rash Penicillin Allergy (Intermediate, Uncoded 05/16/24 15:57) Rash Tobacco use date assessed: 05/16/24 Dental Screening Dental Screen Date: 05/16/24 Did you have a dental visit in the last 12 months?: Yes Did you have a dental problem in the last 6 months where you did not have access to dental care?: No Was dental information given to patient?: Patient has dentist HPI Hypertension HPI Details The patient is a 58-year-old male presenting with concerns primarily related to anemia, fatty liver disease, and joint pain. The patient's anemia and leukopenia have been previously identified and remain stable, with platelet count within normal limits. A recent ultrasound indicated the presence of fatty liver, described as benign but with potential for progression to cirrhosis if unmanaged. The patient has been advised on dietary modifications and increased physical activity to mitigate liver damage. The patient's glucose level was documented at 102 mg/dL, necessitating ongoing monitoring. The patient reports reduced alcohol consumption compared to previous levels, with current intake approximating two drinks daily, which may contribute to hepatic concerns. 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 The pain has persisted, impacting daily function. While the patient has not employed analgesics systematically, [id number] options including acetaminophen and topical diclofenac (Voltaren gel) have been suggested as potentially beneficial. The patient is aware of alternative therapies such as turmeric, although efficacy is variable. Arthritis is considered a probable factor given the symptom pattern and occupational history. Preventative health measures such as vaccinations are current, with updates on influenza, COVID-19, and shingles vaccines completed. The patient understands the limitations of vaccines in precluding infections entirely and remains cautious about exposure. FORMERLY [facility], [facility] Medical History Annual physical exam Anemia Preop exam for internal medicine Fall Vision changes Family history of pancreatic cancer Neck pain Non-healing wound of left lower extremity Hypertriglyceridemia Hypertension Vitamin B12 deficiency Impaired glucose tolerance Surgical History Cataract History of tonsillectomy Family History Father Pancreatic cancer CVA (cerebral vascular accident) Mother Liver disease Brother Substance abuse Sister No problems noted. Social History Household Members: None Housing: Apartment Are you a primary childcare teacher to a significant other at home: No Do you presently have visiting nurse or other home services: No Alcohol intake: current Alcohol intake frequency: a few times a week Comment: QD 2-3 drinks Patient Tobacco Use Status: Never used Tobacco Years Smoked: Marijuana once a week e-Cigarette/Vaping Use: Never Used Second Hand Smoke Exposure: No Substance Use Type: Marijuana service: No Current occupational status: employed Cognitive needs: No Hearing needs: No Vision needs: No Questionnaire PHQ-9 Over the last 2 weeks, how often have you been bothered by any of the following problems? 1. Little interest or pleasure in doing things: not at all 2. Feeling down, depressed, or hopeless: not at all 3. Trouble falling or staying asleep, or sleeping too much: not at all 4. Feeling tired or having little energy: not at all 5. Poor appetite or overeating: not at all 6. Feeling bad about yourself - or that you are a failure or have let yourself or your family down: not at all 7. Trouble concentrating on things, such as reading the newspaper or watching television: not at all 8. Moving or speaking so slowly that other people could have noticed. Or the opposite - being so fidgety or restless that you have been moving around a lot more than usual: not at all 9. Thoughts that you would be better off or of hurting yourself in some way: not at all Total score: 0 Depression Screening Interpretation: Negative Depression Screening Done: Yes 46126 - PHQ-9 Billing: Yes Source: Developed by Drs. Quinton Lee, Kellee Mary, Andrew Diaz and colleagues, with an educational renetta from [employer]. Thrive Questionnaire Date Thrive assessed: 01/13/25 I am a: Patient What is your living situation today?: I have a steady place to live Within the past 12 months, did the food you bought not last and you didn't have the money to get more?: Never true Within the past 12 months, did you worry whether your food would run out before you got money to buy more?: Never true Do you have trouble paying for medicines?: No Do you have trouble getting transportation to medical appointments?: No Do you have trouble paying your heating and electricity bill?: No Do you have trouble taking care of your child, family member or friend?: No Do you have trouble with day-to-day activities such as bathing, preparing meals, shopping, managing finances, etc.?: No Are you currently unemployed and looking for a job?: No Are you interested in more education?: No THRIVE Score: 0 AUDIT C Alcohol Use Questionnaire (AUDIT-C) 1. How often do you have a drink containing alcohol?: 4 or more times a week 2. How many drinks containing alcohol do you have on a typical day when you are drinking?: 1 or 2 3. How often do you have six or more drinks on one occasion?: Never Total Score: 4 JIM-7 AMB Questionnaire JIM-7 Date JIM - 7 assessed: 05/16/24 Feeling nervous, anxious, or on edge: 0 = Not at all Not being able to stop or control worryin = Not at all Worrying too much about different things: 0 = Not at all Trouble relaxin = Not at all Being so restless that it is hard to sit still: 0 = Not at all Becoming easily annoyed or irritable: 0 = Not at all Feeling afraid as if something awful might happen: 0 = Not at all Total JIM-7 score (0-4 normal; 5-9 mild; 10-14 moderate; 15-21 severe): 0 Source: Developed by Drs. Quinton Lee, Kellee Mary, Andrew Diaz and colleagues, with an educational renetta from [employer]. JIM-7 Assessment Billing JIM-7 Assessment Tool: JIM-7 Assessment 63463 Physical exam (Primary Care) Vital Signs: Last Vital Signs Pulse 87 05/16/24 15:54 BP 132/78 05/16/24 15:54 Pulse Ox 98 05/16/24 15:54 Oxygen Delivery Method Room Air 05/16/24 15:54 BMI result Body Mass Index 27.3 Tobacco/Smoking Status: Tobacco use Status Tobacco use date assessed 05/16/24 05/16/24 15:58 Patient Tobacco Use Status Never used Tobacco 05/16/24 15:58 e-Cigarette/Vaping Use Never Used 05/16/24 15:58 PHQ-9: PHQ-9 Score PHQ-9: Total score 0 05/16/24 16:30 Depression Screening Interpretation: Negative Thrive Assessment: Date of Thrive Assessment Date Thrive assessed 05/16/24 05/16/24 15:58 Const General: alert; No acute distress Eyes Conjunctivae: conjunctivae normal Resp Auscultation: clear to auscultation bilaterally Cardio Rate: regular rate Rhythm: regular rhythm GI Inspection: Yes normal to inspection Extrem General: Yes normal to inspection and No edema Coding Level of Care Code Est Pt Level 4 (57627) Diagnoses LFT elevation R79.89 Hepatic steatosis K76.0 Essential hypertension I10 Hypertension type: essential hypertension Impaired glucose tolerance R73.02 Elevated ferritin level R79.89 Anemia D64.9 Additional Codes JIM-7 Assessment Billing - JIM-7 Assessment Tool: JIM-7 Assessment 78581 ([id number]) PHQ-9 - 09679 - PHQ-9 Billing: Yes ([id number]) Assessment & Plan Assessment & Plan (1) LFT elevation: Code(s): R79.89 - Other specified abnormal findings of blood chemistry Category: Medical (2) Hepatic steatosis: Code(s): K76.0 - Fatty (change of) liver, not elsewhere classified Category: Medical (3) Hypertension: Code(s): I10 - Essential (primary) hypertension Category: Medical Qualifiers: Hypertension type: essential hypertension Qualified Code(s): I10 - Essential (primary) hypertension (4) Impaired glucose tolerance: Code(s): R73.02 - Impaired glucose tolerance (oral) Category: Medical (5) Elevated ferritin level: Code(s): R79.89 - Other specified abnormal findings of blood chemistry Category: Medical (6) Anemia: Code(s): D64.9 - Anemia, unspecified Category: Medical Plan - For fatty liver disease: Continue lifestyle modifications focusing on diet and exercise to prevent progression to cirrhosis. Monitor liver function tests regularly. Discussed potential dietary strategies to reduce liver fat accumulation. - For anemia and leukopenia: Continue monitoring complete blood count in follow- up laboratory assessments. Reviewed potential dietary sources of iron to assist in maintaining stable levels. - For joint pain: Recommend trial of [id number]-[id number]-[id number] analgesics, specifically acetaminophen for mild pain. Suggested consideration of Voltaren gel for localized joint pain relief, particularly for occupationally induced discomfort. Patient may explore alternative anti-inflammatory supplements like turmeric, albeit with variable results. - For general wellness and preventative care: Emphasized importance of maintaining hydration and a balanced diet. Reaffirmed current vaccination status, advising continued vigilance against infectious diseases such as influenza, COVID-19, and RSV. Advised on precautionary measures to avoid gastr ointestinal infections. Orders: Orders Hemoglobin A1c 6 Months R73.02 - Impaired glucose tolerance (oral) Comprehensive Met. Panel 6 Months R73.02 - Impaired glucose tolerance (oral) Lipid Panel 6 Months E78.00 - Pure hypercholesterolemia, unspecified, R73.02 - Impaired glucose tolerance (oral) Thyroid Stimulating Hormone 6 Months R73.02 - Impaired glucose tolerance (oral) Prostate Specific Antigen Scr 6 Months R73.02 - Impaired glucose tolerance (oral) Free T4 (Free Thyroxine) 6 Months R73.02 - Impaired glucose tolerance (oral) Ferritin 6 Months R73.02 - Impaired glucose tolerance (oral) Reticulocyte Count 6 Months R73.02 - Impaired glucose tolerance (oral) IRON PROFILE 6 Months R73.02 - Impaired glucose tolerance (oral) Complete Blood Count Auto Diff 6 Months R73.02 - Impaired glucose tolerance (oral) Vitamin B12 and Folate 6 Months R73.02 - Impaired glucose tolerance (oral) Magnesium 6 Months R73.02 - Impaired glucose tolerance (oral)
[2024-05-16 15:54] VITALS: BP 132/78; PULSE 87; O2SAT 98; BMI 27.3
== END 2024-05-16 16:37 | disposition home or self-care (01) ==
PROVIDERS: PCP Internal Medicine; Visit Provider Internal Medicine
DX: R79.89 Other specified abnormal findings of blood chemistry (principal); K76.0 Fatty (change of) liver, not elsewhere classified; I10 Essential (primary) hypertension; R73.02 Impaired glucose tolerance (oral); D64.9 Anemia, unspecified

== ENCOUNTER → 2024-05-16 15:46 | Outpatient (BNVA) | payer OTHER, SELFPAY | PROVIDERS: PCP Internal Medicine; Visit Provider Internal Medicine | DX: R79.89 Other specified abnormal findings of blood chemistry (principal); K76.0 Fatty (change of) liver, not elsewhere classified; I10 Essential (primary) hypertension; R73.02 Impaired glucose tolerance (oral); D64.9 Anemia, unspecified; D72.819 Decreased white blood cell count, unspecified | CPT/HCPCS: 96127 ==

== ENCOUNTER 2024-06-12 11:48 | Emergency (ER) | payer OTHER, SELFPAY ==
--- NOTE | ~2024-06-12 | XR_ITS ---
CLINICAL HISTORY: SOB Chest Radiographs, 2 views Comparison: None Findings: No cardiomegaly. Normal mediastinal contours. No pneumothorax. No opacity. No pleural effusion. Normal upper abdomen. No acute fracture. Impression: No acute findings. This document has been electronically signed by: Aurelia Tabor MD on 06/12/2024 13:17:10
[2024-06-12 11:50] VITALS: BP 122/61; PULSE 111; RESP 18; TEMP 36.6; O2SAT 98; BMI 25.8
--- NOTE | 2024-06-12 11:50 | ED_ITS ---
HPI - Arrhythmia/Palpitations General Chief Complaint: Arrhythmia/Palpitations Stated Complaint: palpitations, dizziness Time Seen by Provider: 06/12/24 13:04 Source: patient Mode of arrival: ambulatory Limitations: no limitations History of Present Illness ED Provider: Xochitl Perez PA-C HPI narrative: Patient is a 58 year old assigned male at with a history of HTN and anemia presenting to the emergency department today with palpitations and feeling like he is going to pass out. Patient states that he hasn't felt well over the last few days and today he was snow blowing when he started to feel his heart race and like he was going to pass out. Patient denies any dizziness, abdominal pain, nausea, vomiting, fever, chills, blurry vision, double vision, loss of vision, chest pain, difficulty breathing, shortness of breath, back pain, night sweats, pain with urination, increased urinary frequency, increased urinary urgency, blood in his urine or stool, syncope or a near syncopal episode, recent trauma or falls, bowel incontinence, bladder incontinence, or any other complaints at this time. Related Data Previous Rx's ?Medication ?Instructions ?Recorded irbesartan 300 mg tablet 300 mg PO DAILY 90 days #90 tabs 12/30/23 Allergies Allergy/AdvReac Type Severity Reaction Status Date / Time Bee stings Allergy Intermediate Rash Uncoded 06/12/24 11:52 Penicillin Allergy Intermediate Rash Uncoded 06/12/24 11:52 Review of Systems 2 Constitutional: Constitutional: Reports no additional constitutional complaints, Denies chills, Denies fever(s) and Denies night sweats Eyes: Eyes: Reports no additional eye complaints, Denies blurry vision, Denies change in vision, Denies diplopia, Denies eye discharge, Denies loss of vision and Denies eye pain ENT: Denies dizziness Cardiovascular: Cardiovascular: Reports no additional cardiovascular complaints, Denies chest pain, Denies lightheadedness, Denies Loss of Consciousness and Denies dyspnea Respiratory: Respiratory: Reports no additional respiratory complaints and Denies dyspnea Gastrointestinal: Gastrointestinal: Reports no additional gastrointestinal complaints, Denies abdominal pain, Denies melena, Denies hematochezia, Denies change in bowel habits and Denies change in stool character Genitourinary: Genitourinary: Reports no additional male genitourinary complaints, Denies hematuria, Denies oliguria, Denies difficulty urinating, Denies dysuria, Denies urinary frequency, Denies urinary hesitancy, Denies urinary incontinence and Denies urinary urgency Musculoskeletal: Musculoskeletal: Reports no additional musculoskeletal complaints, Denies numbness and Denies tingling Neurologic: Denies dizziness, Denies loss of vision, Denies numbness and Denies tingling Psychiatric: Psychiatric: Reports no additional psychiatric complaints Endocrine: Endocrine: Reports no additional endocrine complaints Hematologic/Lymphatic: Hematologic/Lymphatic: Reports no additional hematologic/lymphatic complaints Allergic/Immunologic: Allergic/Immunologic: Reports no additional allergic/immunologic complaints [facility], [facility] Past Medical History Attestation statement: The following information was validated with the patient. Source: old records reviewed and nursing notes reviewed Medical History Annual physical exam Anemia Preop exam for internal medicine Fall Vision changes Family history of pancreatic cancer Neck pain Non-healing wound of left lower extremity Hypertriglyceridemia Hypertension Vitamin B12 deficiency Impaired glucose tolerance Surgical History Cataract History of tonsillectomy Family History Family History Father Pancreatic cancer CVA (cerebral vascular accident) Mother Liver disease Brother Substance abuse Sister No problems noted. Social History Social History Household Members: None Housing: Apartment Are you a primary insurance healthcare consultant to a significant other at home: No Do you presently have visiting nurse or other home services: No Alcohol intake: current Alcohol intake frequency: 3 or more drinks per day Comment: QD 2-3 drinks Patient Tobacco Use Status: Never used Tobacco Years Smoked: Marijuana once a week Smoked in Last 30 Days: No e-Cigarette/Vaping Use: Never Used Second Hand Smoke Exposure: No Use of substances other than those prescribed or required for medical reasons: No Substance Use Type: Marijuana Advance Directives: No Advance Directives Information Provided: No service: No Current occupational status: employed Cognitive needs: No Hearing needs: No Vision needs: No Physical Exam 2 Vital Signs: Vital Signs: Last Vital Signs Temp 98.6 F 06/12/24 14:45 Pulse 83 06/12/24 14:45 Resp 20 06/12/24 14:45 BP 125/79 06/12/24 14:45 Pulse Ox 97 06/12/24 14:45 O2 Del Method Room Air 06/12/24 14:45 BMI result Body Mass Index 25.8 Const: General: cooperative, no acute distress, alert and awake Nutritional Appearance: well nourished Orientation/consciousness: patient oriented x3 Limitations: no limitations HEENT: Head: Yes normal to inspection and Yes atraumatic Ears: hearing grossly normal bilaterally and external ears normal General nose exam: Normal external nose present, no nasal discharge noted and no epistaxis Face and sinus: Yes normal facial exam, No abrasion and No laceration Mouth: Normal oral and palatal mucosa present, no drooling and no muffled voice Eyes: General: appearance normal, both eyes and all related structures P eriorbital: periorbital findings normal Eyelids: Yes eyelids normal C onjunctivae: conjunctivae normal Pupils: Equal, round and reactive pupils present EOM: EOMs intact bilaterally Neck: Neck: Yes normal visual inspection, Yes full ROM and Yes no lymphadenopathy Chest: Chest palpation & inspection: normal inspection of the chest Resp: Effort & Inspection: normal respiratory effort and able to speak in complete sentences GI: Inspection: Yes normal to inspection Neuro: General: patient oriented x3, moves all extremities and CN's II-XI intact bilaterally Cranial nerves: Yes Equal, round and reactive pupils present Cognition (Neuro): normal cognition Extrem: General: Yes normal to inspection, Yes full ROM and Yes capillary refill normal Psych: Appearance: grossly normal Mental Status: mental status grossly normal Affect: normal affect Attitude: cooperative Thought process: N ormal thought process present Thought content: Normal thought content present Insight: Good insight present (Psych) Course Course Course Narrative: This is an RME performed by Jerman Camara CNP: Additional HPI, ROS, PE not included below will be deferred to primary provider. Patient is a 58-year-old male who presents emergency department for evaluation, he reports that today while snow blowing about 1.5hours [employer], began feeling dizzy, seeing white flashes, having palpitations. Currently endorses feeling some lightheadedness and palpitations, denies associated chest pain. Admits to having SOB over the past week, earlier in the week having cold symptoms, somewhat improving. During triage noted to have pulse oximeter with good wave pleath, variable heart rate from 80 up to 120s, episode was brief, upon auscultation of heart sounds, appeared to be a regular rhythm, denies history of arrhythmia/atrial fibrillation in the past Plan: EKG, serum labs, CXR, viral serologies Medications Administered Discontinued Medications Generic Name Dose Route Start Last Admin Trade Name Micky PRN Reason Stop Dose Admin Sodium Chloride 1,000 mls @ 999 mls/hr 06/12/24 13:15 06/12/24 14:45 Ns IV 06/12/24 14:15 999 mls/hr .Q1H1M ON LICENSE OF [facility] Administration Medical Decision Making Medical Decision Making [facility] Narrative: Patient is a 58 year old assigned male at with a history of HTN and anemia presenting to the emergency department today with palpitations and feeling like he is going to pass out. Patient's physical exam was unremarkable. Patient's blood work showed a mild JANELL but was otherwise unremarkable including stable trops. Patient's influenza test was positive. Patient's EKG was unremarkable. Patient's chest x-ray showed no acute process. I explained my physical exam findings as well as all test results to the patient. I answered all questions asked by the patient. Patient was given IV fluids to address his mild dehydration. I stressed the importance of the patient taking his medication as directed (either prescribed or as the over the counter packaging recommends). I stressed the importance of the patient following up with his primary care provider. I stressed the importance of the patient returning to the emergency department immediately if his symptoms were to worsen or if he were to develop any dizziness, shortness of breath, difficulty breathing, chest pain, blurry vision, loss of vision, nausea, vomiting, abdominal pain, fever, chills, back pain, or any other complaints. Patient verbalized agreement and understanding with this treatment plan and discharge. Differential Diagnosis Differential Diagnoses: The differential diagnosis associated with the presentation includes Influenza Lightheadedness NSTEMI STEMI Admission/Observation Consideration of admission/observation: Escalation of care including admission/observation considered Patient would have been admitted to the hospital had his work up had any findings where hospital admission was appropriate and his clinical presentation warranted hospital admission. Lab Data [facility] Lab Attestation statement: I reviewed the patient's lab results. My interpretation of these results are in the [facility] Rationale portion of this note. 06/12/24 12:03 06/12/24 12:03 Labs: Lab Results 06/12/24 06/12/24 Range/Units 12:03 14:42 WBC 7.7 (4.8-10.8) X10*3/uL RBC 3.99 L (4.60-5.80) X10*6/uL Hgb 13.1 L (14.0-18.0) g/dl Hct 36.0 L (42.0-52.0) % MCV 90.2 (80.0-98.0) fL MCH 32.8 (27.0-33.0) pg MCHC 36.4 H (31.0-36.0) g/dl RDW 11.4 (11.0-16.0) % Plt Count 227 (160-400) X10*3/uL MPV 9.6 (9.4-12.4) fL Immature Gran % (Auto) 0.6 H (0.0-0.4) % Neut % (Auto) 81.2 H (45-73) % Lymph % (Auto) 8.8 L (20-40) % [place] % (Auto) 7.2 (2-11) % Eos % (Auto) 1.7 (0-4) % Baso % (Auto) 0.5 (0-2) % Lymph # (Auto) 0.7 L (1.2-4.9) X10*3/uL [place] # (Auto) 0.6 (0.1-1.2) X10*3/uL Eos # (Auto) 0.1 (0.0-0.4) X10*3/uL Baso # (Auto) 0.0 (0.0-0.2) X10*3/uL Abs Immat Gran (auto) 0.05 H (0.00-0.03) X10*3/uL Absolute Neuts (auto) 6.3 (2.0-8.3) x10*3/uL Absolute Nucleated RBC 0.000 (0.0-0.012) X10*3/uL Nucleated RBC % (auto) 0.0 (0.0-0.2) /100WBC PT 12.7 H (10.9-12.4) SEC INR 1.1 (0.9-1.1) Sodium 133 L (135-145) mmol/L Potassium 4.4 (3.3-5.1) mmol/L Chloride 99 (96-108) mmol/L Carbon Dioxide 22 (22-29) mmol/L Anion Gap 16 (12-20) BUN 23 H (9-16) mg/dL Creatinine 1.41 H (0.5-1.4) mg/dL Estim Creat Clear Calc 56.4 Estimated GFR 51 Random Glucose 107 (60-115) mg/dL Calcium 9.2 (8.4-10.2) mg/dL Magnesium 1.9 (1.6-2.6) mg/dL Total Bilirubin 0.9 (0.0-1.0) mg/dL AST 44 H (5-37) U/L ALT 29 (0-40) U/L Alkaline Phosphatase 56 (39-117) U/L Troponin I High Sens 10.0 14.2 (<3.5-35.0) ng/L B-Natriuretic Peptide 28 (<100) pg/mL Total Protein 7.8 (6.5-8.0) g/dL Albumin 3.9 (3.5-5.0) g/dL Influenza Type A (PCR) POSITIVE A (Negative) Influenza Type B (PCR) NEGATIVE (Negative) RSV RNA Qual (PCR) NEGATIVE (Negative) SARS-CoV-2 RNA (RT-PCR) NEGATIVE (Negative) Independent Interpretation I performed an independent interpretation of an: EKG and Plain X-Ray Interpretation: My interpretation is in agreement with the radiologist's impression of this imaging study. L CLINICAL HISTORY: SOB Chest Radiographs, 2 views Comparison: None Findings: No cardiomegaly. Normal mediastinal contours. No pneumothorax. No opacity. No pleural effusion. Normal upper abdomen. No acute fracture. Impression: No acute findings. This document has been electronically signed by: Aurelia Tabor MD on 06/12/2024 13:17:10 Dictated By: Aurelia Thomas MD Signed By: Electronically signed by Aurelia Thomas MD 06/12/24 1317 Vent. Rate: 91 BPM Atrial Rate: 91 BPM P-R Int: 160 ms QRS Dur: 84 ms QT Int: 358 ms P-R-T Axes: 6 70 5 degrees QTcB Int: 440 ms Normal sinus rhythm Normal ECG When compared with ECG of 06-Aug-2023 14:50, Premature atrial complexes are no longer Present DD/ 1158 Radiology Impression Discussion of test interpretation with radiology: I have reviewed the radiologist's reading. Discharge Plan Discharge Clinical Impression: Influenza, JANELL (acute kidney injury) Patient Disposition: Home, Self-Care Instructions: Acute Kidney Injury (DC), Influenza (DC) Additional Instructions: Your work up today showed mild dehydration and a positive influenza diagnosis. You should REST and drink plenty of fluids. Follow up with your primary care provider. Return to the emergency department immediately if your symptoms worsen or if you develop any dizziness, shortness of breath, difficulty breathing, chest pain, blurry vision, loss of vision, nausea, vomiting, abdominal pain, fever, chills, back pain, or any other complaints. Prescriptions: No Action irbesartan 300 mg tablet 300 mg PO DAILY 90 Days Qty: 90 3RF Referrals: Po,Mery Perez MD [Primary Care Provider] - Print Language: Mexican
--- NOTE | 2024-06-12 11:52 | ECG_ITS ---
Test Reason : PAPLITATIONS Blood Pressure : */* mmHG Vent. Rate : 91 BPM Atrial Rate : 91 BPM P-R Int : 160 ms QRS Dur : 84 ms QT Int : 358 ms P-R-T Axes : 6 70 5 degrees QTcB Int : 440 ms Normal sinus rhythm Normal ECG When compared with ECG of 06-Aug-2023 14:50, Premature atrial complexes are no longer Present Referred By: Stacey Camara Electronically Signed By: LORRAINE PEMBERTON MD
[2024-06-12 12:10] LABS: MANUAL DIFF FLAG NO
[2024-06-12 12:12] LABS: Basophils Percent Auto 0.5 % (0-2); Eosinophils Absolute Auto 0.1 X10*3/uL (0.0-0.4); Eosinophils Percent Auto 1.7 % (0-4); Hemoglobin 13.1 g/dl (14.0-18.0); Imm Gran Abs Auto 0.05 X10*3/uL (0.00-0.03); Imm Gran Pct Auto 0.6 % (0.0-0.4); Lymphocytes Absolute Auto 0.7 X10*3/uL (1.2-4.9); Lymphocytes Percent Auto 8.8 % (20-40); Mean Corpuscular HGB Conc 36.4 g/dl (31.0-36.0); Mean Corpuscular Hemoglobin 32.8 pg (27.0-33.0); Mean Corpuscular Volume 90.2 fL (80.0-98.0); Mean Platelet Volume 9.6 fL (9.4-12.4); Monocytes Absolute Auto 0.6 X10*3/uL (0.1-1.2); Monocytes Percent Auto 7.2 % (2-11); Neutrophils Absolute Auto 6.3 x10*3/uL (2.0-8.3); Neutrophils Percent Auto 81.2 % (45-73); Platelet Count 227 X10*3/uL (160-400); Red Blood Count 3.99 X10*6/uL (4.60-5.80); Red Cell Distribution Width 11.4 % (11.0-16.0); White Blood Count 7.7 X10*3/uL (4.8-10.8)
[2024-06-12 12:20] LABS: INTERNATIONAL NORM RATIO 1.1 (0.9-1.1); Prothrombin Time 12.7 SEC (10.9-12.4)
[2024-06-12 12:29] LABS: Alanine Aminotransferase 29 U/L (0-40); Albumin Level 3.9 g/dL (3.5-5.0); Alkaline Phosphatase 56 U/L (39-117); Anion Gap 16 (12-20); Aspartate Amino Transferase 44 U/L (5-37); Bilirubin Total 0.9 mg/dL (0.0-1.0); Blood Urea Nitrogen 23 mg/dL (9-16); Calcium 9.2 mg/dL (8.4-10.2); Carbon Dioxide 22 mmol/L (22-29); Chloride 99 mmol/L (96-108); Creatinine Clr Calc Pharmacy 56.4; Estimated Glomerular Filt Rate 51; Glucose Random 107 mg/dL (60-115); Magnesium 1.9 mg/dL (1.6-2.6); Potassium 4.4 mmol/L (3.3-5.1); Sodium 133 mmol/L (135-145); Total Protein 7.8 g/dL (6.5-8.0)
[2024-06-12 12:30] LABS: B Type Natriuretic Peptide 28 pg/mL (<100)
[2024-06-12 12:47] LABS: Influenza A PCR POSITIVE (Negative); Influenza B PCR NEGATIVE (Negative); Resp Syncy Virus RNA Qual PCR NEGATIVE (Negative); SARS COV2 PCR INHOUSE NEGATIVE (Negative)
[2024-06-12 13:29] VITALS: BP 104/58; BP 113/66; BP 120/66; PULSE 92; PULSE 93
[2024-06-12 13:30] VITALS: BP 113/66; PULSE 92; RESP 20; O2SAT 100
[2024-06-12 14:45] VITALS: BP 125/79; PULSE 83; RESP 20; TEMP 37; O2SAT 97
[2024-06-12] MEDS: 0.9 % Sodium Chloride 1,000 ML 999 ML IV (14:45)
[2024-06-12 15:28] LABS: Troponin-I High Sensitivity 14.2 ng/L (<3.5-35.0)
[2024-06-12 15:57] VITALS: BP 125/79; PULSE 83; RESP 20; TEMP 37; O2SAT 97
== END 2024-06-12 15:58 | disposition home or self-care (01) ==
PROVIDERS: Nurse Practitioner Family; Physician Assistant Medical; Emergency Provider Emergency Medicine; PCP Internal Medicine
DX: J10.1 Influenza due to other identified influenza virus with other respiratory manifestations (principal); I49.9 Cardiac arrhythmia, unspecified; R00.2 Palpitations; I10 Essential (primary) hypertension; R06.02 Shortness of breath; N17.9 Acute kidney failure, unspecified; Z03.818 Encounter for observation for suspected exposure to other biological agents ruled out; Z79.899 Other long term (current) drug therapy
CPT/HCPCS: 0241U; 36415; 71046; 80053; 83735; 83880; 84484; 85025; 85610; 93005; 99284; 99285

== ENCOUNTER → 2024-06-12 11:52 | Outpatient (BNV) | payer OTHER, SELFPAY | PROVIDERS: Emergency Provider Emergency Medicine; PCP Internal Medicine; Visit Provider Internal Medicine Cardiovascular Disease | DX: R00.2 Palpitations (principal) | CPT/HCPCS: 93010 ==

== ENCOUNTER → 2024-06-12 11:52 | Outpatient (BNV) | payer OTHER, SELFPAY | PROVIDERS: Emergency Provider Emergency Medicine; PCP Internal Medicine; Visit Provider Radiology Diagnostic Radiology | DX: R06.02 Shortness of breath (principal) | CPT/HCPCS: 71046 ==

== ENCOUNTER 2024-12-12 07:48 | Outpatient (REF) | payer OTHER, SELFPAY ==
--- OUTSIDE RECORDS SUMMARY | 2024-12-12 07:51 | XMS_ITS | Patient Health Record ---
Author Organization [facility] Address [address] [place] [address] Care Team Providers Care Termite Control Servicer Name Role Phone Mery Kaplan MD Primary Care Provider Quinton Roque [phone] Allergies Allergen (clinical drug ingredient) Drug/Non Drug Allergy documented on EMR Reaction Allergy Type Onset Date Status Penicillin Unknown Drug Allergy Active bee stings (uncoded) Unknown Allergy Active Reason For Referral No Information Medications Medication SIG (Take, Route, Frequency, Duration) Notes Start Date End Date Status Avapro Active Problems Problem Type SNOMED Code ICD Code Onset Dates Problem Status W/U Status Risk Notes Problem [id number] Encounter for screening for malignant neoplasm of colon (Z12.11) Active confirmed Problem Screening for malignant neoplasm of rectum (512047424) Encounter for screening for malignant neoplasm of rectum (Z12.12) Active confirmed Problem [id number] Preprocedural examination (Z01.818) Active confirmed Plan Of Treatment Pending Test Test Name Order Date GI BIOPSY 02/21/2016 Future Test Test Name Order Date COLONOSCOPY 11/29/2015 Insurance Providers Payer Name Payer Address Payer Phone Subscriber Number Group Number Insured Name Patient Relationship to Insured Coverage Start Date Coverage End Date [facility] [place] [address] [place] [phone] [id number] REVASHEEBAO Self - patient is the insured Medical (General) History Medical History History ICD Code Denies LA,DM,CVA,Lung disease,renal dise ase HTN Surgical History Surgery Date(Month/Year) Tonsillectomy
--- OUTSIDE RECORDS SUMMARY | 2024-12-12 07:51 | XMS_ITS | Encounter Summary ---
Author Organization [facility] [place] [facility] Address [address] [place] [address] Phone Care Team Providers Care Marketing Account Executive Name Role Phone Mery Kaplan MD Primary Care Provider [phone] Encounter Details Date Type Department Care Team (Late st Contact Info) Description 01/28/2018 Transcribe Orders [facility] [address] [place] [address] Mery Kaplan MD [address] [place] [phone] Routine general medical examination at a health care facility (Primary Dx); Pure hypercholesterolemia ; Essential hypertension, malignant; Impaired fasting glucose Social History Tobacco Use Types Packs/Day Years Used Date Smoking Tobacco: Never Assessed Sex and Gender Information Value Date Recorded Sex Assigned at Not on file Legal Sex Male 9:41 PM EDT Gender Identity Not on file Sexual Orientation Not on file documented as of this encounter Plan of Treatment Not on file documented as of this encounter Results * TSH with reflex (01/28/2018 8:29 AM EDT) TSH 3.76 0.27 - 4.20 uIU/mL [facility] Blood 01/28/2018 8:29 AM EDT 01/28/2018 8:31 AM EDT us Mery Kaplan MD LAB BLOOD ORDERABLES Final Re sult [facility] [address] [place] [address] * 25-OH vitamin D (01/28/2018 8:29 AM EDT) 25 OH VIT D (TOTAL) 34 30 - 60 ng/mL [facility] Blood 01/28/2018 8:29 AM EDT 01/28/2018 8:31 AM EDT Mery Kaplan MD LAB BLOOD ORDERABLES Final Re sult [facility] [address] [place] [address] * (ABNORMAL) CBC and differential (01/28/2018 8:29 AM EDT) WBC 7.45 3.40 - 11.20 K/uL [facility] RBC 4.26(L) 4.50 - 5.50 M/uL [facility] HGB 13.7 13.0 - 17.0 g/dL [facility] HCT 37.6(L) 40.0 - 51.0 % [facility] PLT 226 130 - 400 K/uL [facility] MCV 88.3 79.0 - 98.0 fL [facility] MCH 32.2 27.0 - 34.8 pg [facility] MCHC 36.4(H) 31.5 - 36.0 g/dL [facility] RDW 11.6 10.8 - 14.6 % [facility] MPV 10.8 9.4 - 12.4 fl [facility] NRBC 0.00 /100 WBCs [facility] ABSOLUTE NRBC 0.00 K/uL [facility] DIFF METHOD Auto [facility] NEUTS 65.4 45.30 - 77.70 % [facility] LYMPHS 22.3 12.30 - 39.70 % [facility] MONOS 7.5 4.10 - 12.80 % [facility] EOS 3.9 0 - 7.2 % [facility] BASOS 0.5 0 - 2.80 % [facility] Granulocytes, immature (%) 0.4 0.0 - 0.9 % [facility] ABSOLUTE NEUTS 4.87 1.40 - 7.70 K/uL [facility] ABSOLUTE LYMPHS 1.66 0.60 - 3.20 K/uL [facility] ABSOLUTE MONOS 0.56 0.11 - 0.59 K/uL [facility] ABSOLUTE EOS 0.29 0.01 - 0.50 K/uL [facility] ABSOLUTE BASOS 0.04 0.00 - 0.08 K/uL [facility] Granulocytes, immature 0.03 0.00 - 0.05 K/uL [facility] Blood 01/28/2018 8:29 AM EDT 01/28/2018 8:31 AM EDT us Mery Kaplan MD LAB BLOOD ORDERABLES Final Re sult Performing Organization Address [facility] Co de Phone Number [address] [address] * (ABNORMAL) Folate (01/28/2018 8:29 AM EDT) FOLIC ACID >20.0(H) 4.2 - 19.9 ng/mL [facility] Blood 01/28/2018 8:29 AM EDT 01/28/2018 8:31 AM EDT us Mery Kaplan MD LAB BLOOD ORDERABLES Final Re sult Performing Organization Address [facility]/ZIP Co de Phone Number [address] [address] * Vitamin B12 (01/28/2018 8:29 AM EDT) VITAMIN B12 386 232 - 1,245 pg/mL [facility] Blood 01/28/2018 8:29 AM EDT 01/28/2018 8:31 AM EDT us Mery Kaplan MD LAB BLOOD ORDERABLES Final Re sult Performing Organization Address [facility]/ZIP Co de Phone Number [address] [address] * (ABNORMAL) Lipid panel (01/28/2018 8:29 AM EDT) HDL 25 mg/dL [facility] Comment: Interpretation: Risk Level Males Decreased >45 mg/dL Average 40-45 mg/dL Increased <40 mg/dL CHOLESTEROL 181 0 - 240 mg/dL [facility] TRIGLYCERIDES 508(H) 30 - 160 mg/dL [facility] LDL NOT CALCULATED 50 - 129 mg/dL [facility] Comment: Unable to calculate due to elevated TRIG of greater than 400. A measured LDL will be performed. CARDIAC RISK RATIO 7.2(H) 3.4 - 5.0 [facility] Blood 01/28/2018 8:29 AM EDT 01/28/2018 8:31 AM EDT us Mery Kaplan MD LAB BLOOD ORDERABLES Final Re sult [address] [address] * (ABNORMAL) Comprehensive metabolic panel (01/28/2018 8:29 AM EDT) SODIUM 135 133 - 146 mmol/L [facility] POTASSIUM 4.6 3.3 - 5.1 mmol/L [facility] CHLORIDE 96 96 - 108 mmol/L [facility] CO2 25 21 - 35 mmol/L [facility] BUN 16 6 - 19 mg/dL [facility] CREATININE 0.90 0.5 - 1.5 mg/dL [facility] GLUCOSE 105(H) 70 - 99 mg/dL [facility] ALBUMIN 4.6 3.9 - 4.8 g/dL [facility] TOTAL PROTEIN 7.7 6.5 - 8.0 g/dL [facility] CALCIUM 9.4 8.4 - 10.3 mg/dL [facility] ALKALINE PHOSPHATASE 62 39 - 117 U/L [facility] TOTAL BILIRUBIN 0.6 0.0 - 1.2 mg/dL [facility] AST 29 0 - 37 U/L [facility] ALT 33 0 - 40 U/L [facility] GLOBULIN 3.1 1 - 4.8 g/dL [facility] EGFR 97 >59 mL/min/1.7 3m2 [facility] Comment:If patient is black, multiply result by 1.159. Estimated glomerular filtration rate calculated using the CKD-EPI equation. ANION GAP 19 10 - 20 mmol/L [facility] Blood 01/28/2018 8:29 AM EDT 01/28/2018 8:31 AM EDT us Mery Kaplan MD LAB BLOOD ORDERABLES Final Re sult [facility] [address] [place] [address] documented in this encounter Visit Diagnoses Diagnosis Routine general medical examination at a health care facility- Primary Pure hypercholesterolemia Essential hypertension, malignant Impaired fasting glucose documented in this encounter Care Teams Marketing Account Executive Relationship Specialty Start Date End Date Mery Kaplan MD [address] [place] [address] PCP - General Internal Medicine 09/24/17 documented as of this encounter Additional Source Comments The information contained in this document represents components of the legal health record. It is not the complete legal health record.[facility] [place] [facility]
[2024-12-12 08:00] LABS: MANUAL DIFF FLAG NO
[2024-12-12 08:13] LABS: Hematocrit 37.9 % (42.0-52.0); Hemoglobin 13.5 g/dl (14.0-18.0); Imm Gran Abs Auto 0.03 X10*3/uL (0.00-0.03); Imm Gran Pct Auto 0.8 % (0.0-0.4); Lymphocytes Absolute Auto 1.4 X10*3/uL (1.2-4.9); Mean Corpuscular HGB Conc 35.6 g/dl (31.0-36.0); Mean Corpuscular Hemoglobin 32.9 pg (27.0-33.0); Mean Corpuscular Volume 92.4 fL (80.0-98.0); NRBC Abs Auto 0.000 X10*3/uL (0.0-0.012); NRBC Pct Auto 0.0 /100WBC (0.0-0.2); Platelet Count 191 X10*3/uL (160-400); Red Blood Count 4.10 X10*6/uL (4.60-5.80); Reticulocytes Absolute 0.085 X10*6/uL (0.026-0.095); White Blood Count 3.6 X10*3/uL (4.8-10.8)
[2024-12-12 08:23] LABS: Hemoglobin A1C 109.6108 umol/L; Total Hemoglobin (HGBA1C) 3554.9415 umol/L
[2024-12-12 09:06] LABS: Alanine Aminotransferase 48 U/L (0-40); Albumin Level 4.3 g/dL (3.5-5.0); Alkaline Phosphatase 62 U/L (39-117); Anion Gap 11 (12-20); Aspartate Amino Transferase 42 U/L (5-37); Blood Urea Nitrogen 17 mg/dL (9-16); Calcium 8.7 mg/dL (8.4-10.2); Carbon Dioxide 26 mmol/L (22-29); Chloride 108 mmol/L (96-108); Cholesterol 145 mg/dL (<200); Estimated Glomerular Filt Rate > 60; HDL Cholesterol 33 mg/dL (>40); Iron 78 mcg/dL (45-160); Magnesium 1.9 mg/dL (1.6-2.6); Percent Iron Saturation 31 % (15-50); Potassium 4.7 mmol/L (3.3-5.1); Sodium 140 mmol/L (135-145); Total Iron Binding Capacity 254 mcg/dL (228-428); Total Protein 7.1 g/dL (6.5-8.0); Triglycerides 112 mg/dL (<150); Unsaturated Iron Binding 176 ug/dL
[2024-12-12 09:22] LABS: Folate 11.2 ng/mL (> or = 4.0); Vitamin B12 310 pg/mL (200-900)
[2024-12-12 09:27] LABS: Ferritin 1133 ng/mL (20-250); Free T4 (Free Thyroxine) 0.79 ng/dL (0.71-1.85); Thyroid Stimulating Hormone 4.64 uIU/mL (0.32-4.0)
== END 2024-12-12 07:49 | disposition home or self-care (01) ==
LOC: HO.LAB 07:48
PROVIDERS: PCP Internal Medicine; Visit Provider Internal Medicine
DX: Z12.5 Encounter for screening for malignant neoplasm of prostate (principal); E78.00 Pure hypercholesterolemia, unspecified; R73.02 Impaired glucose tolerance (oral)
CPT/HCPCS: 36415; 80053; 80061; 82607; 82728; 82746; 83036; 83540; 83735; 84153; 84439; 84443; 85025; 85045

== ENCOUNTER 2024-12-14 15:58 | Outpatient (AMB) | payer OTHER, SELFPAY ==
--- NOTE | 2024-12-14 15:59 | MHC.PC.OV ---
Vital Signs 12/14/24 16:02 Height 5 ft 8 in BP 112/70 Blood Pressure Location Lt brachial Position Sitting Pulse 99 Pulse Source Pulse Oximeter Pulse Oximetry (%) 98 Oxygen Delivery Method Room Air Intake Visit Reasons: annual exam Marine Drafter Required: No Accompanied by: Self / Same As Patient Allergies Bee stings Allergy (Intermediate, Uncoded 12/14/24 16:15) Rash Penicillin Allergy (Intermediate, Uncoded 12/14/24 16:15) Rash Medication List - Last Reconciled 12/14/24 by Sheba Davidson PA-C irbesartan 300 mg PO DAILY 90 days Tobacco use date assessed: 12/14/24 Dental Screening Dental Screen Date: 12/14/24 Did you have a dental visit in the last 12 months?: No Did you have a dental problem in the last 6 months where you did not have access to dental care?: No Was dental information given to patient?: No HPI annual exam HPI Details 58 year old male with past medical history of impaired glucose tolerance, hypertension, hypertriglyceridemia, anemia, and fatty liver last seen 05/2024 coming in for annual exam. Presenting for an annual wellness visit. The patient is on irbesartan and reports no changes in his medication regimen. Known umbilical hernia present for two years, asymptomatic. eye doctor: Dr. Mims yearly PSA: 12/2024 normal colonoscopy: 2015 repeat in 10 years Vaccines: Tdap, covid and flu UTD PFSH Medical History Annual physical exam Anemia Preop exam for internal medicine Fall Vision changes Family history of pancreatic cancer Neck pain Non-healing wound of left lower extremity Hypertriglyceridemia Hypertension Vitamin B12 deficiency Impaired glucose tolerance Surgical History Cataract History of tonsillectomy Family History Father Pancreatic cancer CVA (cerebral vascular accident) Mother Liver disease Brother Substance abuse Sister No problems noted. Social History Household Members: None Housing: Apartment Are you a primary animal care technician to a significant other at home: No Do you presently have visiting nurse or other home services: No Alcohol intake: current Alcohol intake frequency: 3 or more drinks per day Comment: QD 2-3 drinks Patient Tobacco Use Status: Never used Tobacco Years Smoked: Marijuana once a week e-Cigarette/Vaping Use: Never Used Second Hand Smoke Exposure: No Substance Use Type: Marijuana service: No Current occupational status: employed Cognitive needs: No Hearing needs: No Vision needs: No Questionnaire PHQ-9 Over the last 2 weeks, how often have you been bothered by any of the following problems? 1. Little interest or pleasure in doing things: not at all 2. Feeling down, depressed, or hopeless: not at all 3. Trouble falling or staying asleep, or sleeping too much: not at all 4. Feeling tired or having little energy: not at all 5. Poor appetite or overeating: not at all 6. Feeling bad about yourself - or that you are a failure or have let yourself or your family down: not at all 7. Trouble concentrating on things, such as reading the newspaper or watching television: not at all 8. Moving or speaking so slowly that other people could have noticed. Or the opposite - being so fidgety or restless that you have been moving around a lot more than usual: not at all 9. Thoughts that you would be better off or of hurting yourself in some way: not at all Total score: 0 Depression Screening Interpretation: Negative Depression Screening Done: Yes 86802 - PHQ-9 Billing: Yes Source: Developed by Drs. Quinton Lee, Kellee Mary, Andrew Diaz and colleagues, with an educational renetta from [employer] Thrive Questionnaire Date Thrive assessed: 12/14/24 I am a: Patient What is your living situation today?: I have a steady place to live Within the past 12 months, did the food you bought not last and you didn't have the money to get more?: I choose not to answer this question Within the past 12 months, did you worry whether your food would run out before you got money to buy more?: I choose not to answer this question Do you have trouble paying for medicines?: No Do you have trouble getting transportation to medical appointments?: No Do you have trouble paying your heating and electricity bill?: No Do you have trouble taking care of your child, family member or friend?: No Do you have trouble with day-to-day activities such as bathing, preparing meals, shopping, managing finances, etc.?: No Are you currently unemployed and looking for a job?: No Are you interested in more education?: No Please select the resources that you would like help with: None Currently or been in a relationship where the following occur: I choose not to answer THRIVE Score: 0 AUDIT C Alcohol Use Questionnaire (AUDIT-C) 1. How often do you have a drink containing alcohol?: 2-3 times a week 2. How many drinks containing alcohol do you have on a typical day when you are drinking?: 1 or 2 3. How often do you have six or more drinks on one occasion?: Less than monthly Total Score: 4 JIM-7 AMB Questionnaire JIM-7 Date JIM - 7 assessed: 12/14/24 Feeling nervous, anxious, or on edge: 0 = Not at all Not being able to stop or control worryin = Not at all Worrying too much about different things: 0 = Not at all Trouble relaxin = Not at all Being so restless that it is hard to sit still: 0 = Not at all Becoming easily annoyed or irritable: 0 = Not at all Feeling afraid as if something awful might happen: 0 = Not at all Total JIM-7 score (0-4 normal; 5-9 mild; 10-14 moderate; 15-21 severe): 0 Source: Developed by Drs. Quinton Lee, Kellee Mary, Andrew Diaz and colleagues, with an educational renetta from [employer] JIM-7 Assessment Billing JIM-7 Assessment Tool: JIM-7 Assessment 83230 Review of Systems Const Denies body aches, Denies fatigue, Denies fever(s), Denies frequent falls, Denies headache(s) and Denies weakness Eyes Reports no additional complaints and Denies change in vision ENT Denies dysphagia, Denies dizziness, Denies facial pain, Denies headache(s), Denies nasal congestion and Denies odynophagia Card Denies chest pain, Denies syncope, Denies irregular heart rhythm, Denies leg edema, Denies lightheadedness and Denies dyspnea Resp Denies cough and Denies dyspnea GI Denies constipation, Denies dysphagia, Denies dyspepsia, Denies diarrhea, Denies nausea, Denies odynophagia and Denies vomiting Denies dysuria, Denies urinary frequency, Denies urinary hesitancy and Denies urinary urgency Musc Denies back pain and Denies myalgias Skin/Breast Reports system reviewed and no additional complaints, except as documented Neuro Denies dizziness, Denies syncope, Denies frequent falls, Denies headache(s) and Denies weakness Psych Reports no additional complaints Endo Denies fatigue Physical exam (Primary Care) Vital Signs: Last Vital Signs Pulse 99 12/14/24 16:02 BP 112/70 12/14/24 16:02 Pulse Ox 98 12/14/24 16:02 Oxygen Delivery Method Room Air 12/14/24 16:02 Tobacco/Smoking Status: Tobacco use Status Tobacco use date assessed 12/14/24 12/14/24 16:06 Patient Tobacco Use Status Never used Tobacco 12/14/24 16:06 e-Cigarette/Vaping Use Never Used 12/14/24 16:06 PHQ-9: PHQ-9 Score PHQ-9: Total score 0 12/14/24 16:06 Depression Screening Interpretation: Negative Thrive Assessment: Date of Thrive Assessment Date Thrive assessed 12/14/24 12/14/24 16:06 Currently or been in a relationship where the following occur: I choose not to answer Const General: cooperative, healthy appearing, comfortable and no acute distress Orientation/consciousness: patient oriented x3 HENMT Head: Yes normocephalic Ears: hearing grossly normal bilaterally, external ears normal, TM's normal bilaterally and EAC's normal General nose exam: Normal external nose present Face and sinus: Yes normal facial exam and Yes sinuses nontender Mouth: Normal oral and palatal mucosa present and tongue normal Throat: Yes posterior oropharynx normal Eyes General: appearance normal, both eyes and all related structures Conjunctivae: conjunctivae normal Pupils: Equal, round and reactive pupils present EOM: EOMs intact bilaterally and No Nystagmus present Neck Neck: Yes normal visual inspection, Yes full ROM and Yes no lymphadenopathy Chest Chest palpation & inspection: normal inspection of the chest Resp Effort & Inspection: normal respiratory effort Auscultation: clear to auscultation bilaterally, no crackles, no rales, no rhonchi, no wheezes and breath sounds present Cardio Rate: regular rate Rhythm: regular rhythm Peripheral pulses: radial pulses present and dorsalis pedis present GI Inspection: Yes normal to inspection and No Abdominal wall edema Palpation (GI): Soft to palpation, not firm and nontender Auscultation: normal bowel sounds Rectal Exam - Male: Yes deferred Abdomen image:  1. Reducible, nontender umbilical hernia General: Yes no CVA tenderness Back/Spine/Pelvis Back: no CVA tenderness Skin General skin exam: no rashes or lesions noted Neuro General: patient oriented x3 Cranial nerves: Yes Equal, round and reactive pupils present, Yes Midline tongue present, Yes Ability to bilaterally elevate shoulders present and No Nystagmus present Gait exam (Neuro): Normal gait present Extrem General: Yes normal to inspection, Yes full ROM, No no pedal edema and No edema Psych Speech and movement: Normal speech and movement present Affect: normal affect Insight: Good insight present (Psych) Judgement: Good judgement present (Psych) Coding Level of Care Code Est Pt Prev Care 40-64y(84419) Diagnoses Annual physical exam Z00.00 Essential hypertension I10 Hypertension type: essential hypertension Hypertriglyceridemia E78.1 Impaired glucose tolerance R73.02 Hepatic steatosis K76.0 Anemia D64.9 Umbilical hernia K42.9 Additional Codes JIM-7 Assessment Billing - JIM-7 Assessment Tool: JIM-7 Assessment 22618 ([id number]) PHQ-9 - 09180 - PHQ-9 Billing: Yes ([id number]) Assessment & Plan Assessment & Plan (1) Annual physical exam: Code(s): Z00.00 - Encounter for general adult medical examination without abnormal findings Category: Medical Plan: Patient is up-to-date on all recommended routine screenings and vaccinations for his age. Blood work is up-to-date and has been reviewed with the patient today. Healthy diet and regular exercise is encouraged. Plan to follow up in a year or sooner as needed (2) Hypertension: Code(s): I10 - Essential (primary) hypertension Category: Medical Qualifiers: Hypertension type: essential hypertension Qualified Code(s): I10 - Essential (primary) hypertension Plan: Continue on current blood pressure medication. Avoid salt intake and encourage healthy diet and regular exercise. (3) Hypertriglyceridemia: Code(s): E78.1 - Pure hyperglyceridemia Category: Medical Plan: Avoid foods that are high in cholesterol such as red meat, fried foods, eggs and baked goods. Triglyceride goal of less than 150 and LDL goal of less than 130. Well managed without medication at this time. (4) Impaired glucose tolerance: Code(s): R73.02 - Impaired glucose tolerance (oral) Category: Medical Plan: Decrease the amount of carbohydrates such as pasta, bread, rice, and potatoes and limit the amount of sweets. Although fruits are generally healthy they should be eaten in moderation as they are still high in sugar. Last A1c 5.5% without medication. (5) Hepatic steatosis: Code(s): K76.0 - Fatty (change of) liver, not elsewhere classified Category: Medical Plan: Healthy diet and regular exercise is encouraged. (6) Anemia: Code(s): D64.9 - Anemia, unspecified Category: Medical Plan: Stable on last blood work, continue to monitor at this time. (7) Umbilical hernia: Code(s): K42.9 - Umbilical hernia without obstruction or gangrene Category: Medical Plan: Asymptomatic at this time continue to monitor. Reviewed red flag symptoms and when to present for re-evaluation Plan The patient will maintain his current regimen of irbesartan for hypertension, with home monitoring of blood pressure advised. He should report any significant changes. The fatty liver condition remains stable, with no immediate intervention needed, but a healthy lifestyle is recommended. The umbilical hernia is asymptomatic, and the patient should avoid heavy lifting. Regular follow-up is advised to monitor the hernia. Preventative care is up-to-date, with the next colonoscopy due in 2025 and tetanus vaccination next year. This note was constructed using voice recognition software. While every effort has been made to ensure accuracy and family development specialist, still areas may have been included sometimes these areas may affect the content or meeting of the given symptoms. Total time spent caring for the patient today was 30 minutes. This includes time spent before the visit reviewing the chart, time spent during the visit, and time spent after the visit and documentation. Patient was informed and verbally consented to the use of an ambient scribe for clinic note documentation during this visit.
--- OUTSIDE RECORDS SUMMARY | 2024-12-14 16:01 | XMS_ITS | Encounter Summary ---
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 Name Role Phone Mery Kaplan MD Primary Care Provider [phone] Encounter Details Date Type Department Care Team (Late st Contact Info) Description 01/28/2018 Transcribe Orders [facility] Laboratory [address] [place] [address] Mery Kaplan MD [address] [place] [address] [address] [place] [phone] Routine general medical examination at a health [...] EDT) TSH 3.76 0.27 - 4.20 uIU/mL [facility] Blood 01/28/2018 8:29 AM EDT 01/28/2018 8:31 AM EDT us Mery Kaplan MD LAB BLOOD ORDERABLES Final Re sult [facility] [address] [place] [address] * 25-OH vitamin D (01/28/2018 8:29 AM EDT) 25 OH VIT D (TOTAL) 34 30 - 60 ng/mL [facility] Blood 01/28/2018 8:29 AM EDT 01/28/2018 8:31 AM EDT Mery Kaplan MD LAB BLOOD ORDERABLES Final Re sult [facility] [address] [place] [address] * (ABNORMAL) CBC and differential (01/28/2018 8:29 AM EDT) WBC 7.45 3.40 - 11.20 K/uL [facility] RBC 4.26(L) 4.50 - 5.50 M/uL [facility] HGB 13.7 13.0 - 17.0 g/dL [facility] HCT 37.6(L) 40.0 - 51.0 % [facility] PLT 226 130 - 400 K/uL [facility] MCV 88.3 79.0 - 98.0 fL [facility] MCH 32.2 27.0 - 34.8 pg [facility] MCHC 36.4(H) 31.5 - 36.0 g/dL [facility] RDW 11.6 10.8 - 14.6 % [facility] MPV 10.8 9.4 - 12.4 fl [facility] NRBC 0.00 /100 WBCs [facility] ABSOLUTE NRBC 0.00 K/uL [facility] DIFF METHOD Auto [facility] NEUTS 65.4 45.30 - 77.70 % [facility] LYMPHS 22.3 12.30 - 39.70 % [facility] MONOS 7.5 4.10 - 12.80 % [facility] EOS 3.9 0 - 7.2 % [facility] BASOS 0.5 0 - 2.80 % [facility] Granulocytes, immature (%) 0.4 0.0 - 0.9 % [facility] ABSOLUTE NEUTS 4.87 1.40 - 7.70 K/uL [facility] ABSOLUTE LYMPHS 1.66 0.60 - 3.20 K/uL [facility] ABSOLUTE MONOS 0.56 0.11 - 0.59 K/uL [facility] ABSOLUTE EOS 0.29 0.01 - 0.50 K/uL [facility] ABSOLUTE BASOS 0.04 0.00 - 0.08 K/uL [facility] Granulocytes, immature 0.03 0.00 - 0.05 K/uL [facility] Blood 01/28/2018 8:29 AM EDT 01/28/2018 8:31 AM EDT us Mery Kaplan MD LAB BLOOD ORDERABLES Final Re sult Performing Organization Address [facility] Co de Phone Number [address] [address] * (ABNORMAL) Folate (01/28/2018 8:29 AM EDT) FOLIC ACID >20.0(H) 4.2 - 19.9 ng/mL [facility] Blood 01/28/2018 8:29 AM EDT 01/28/2018 8:31 AM EDT us Mery Kaplan MD LAB BLOOD ORDERABLES Final Re sult Performing Organization Address [facility]/ZIP Co de Phone Number [address] [address] * Vitamin B12 (01/28/2018 8:29 AM EDT) VITAMIN B12 386 232 - 1,245 pg/mL [facility] Blood 01/28/2018 8:29 AM EDT 01/28/2018 8:31 AM EDT us Mery Kaplan MD LAB BLOOD ORDERABLES Final Re sult Performing Organization Address [facility]/ZIP Co de Phone Number [address] [address] * (ABNORMAL) Lipid panel (01/28/2018 8:29 AM EDT) HDL 25 mg/dL [facility] Comment: Interpretation: Risk Level Males Decreased >45 mg/dL Average 40-45 mg/dL Increased <40 mg/dL CHOLESTEROL 181 0 - 240 mg/dL [facility] TRIGLYCERIDES 508(H) 30 - 160 mg/dL [facility] LDL NOT CALCULATED 50 - 129 mg/dL [facility] Comment: Unable to calculate due to elevated TRIG of greater than 400. A measured LDL will be performed. CARDIAC RISK RATIO 7.2(H) 3.4 - 5.0 [facility] Blood 01/28/2018 8:29 AM EDT 01/28/2018 8:31 AM EDT us Mery Kaplan MD LAB BLOOD ORDERABLES Final Re sult [address] [address] * (ABNORMAL) Comprehensive metabolic panel (01/28/2018 8:29 AM EDT) SODIUM 135 133 - 146 mmol/L [facility] POTASSIUM 4.6 3.3 - 5.1 mmol/L [facility] CHLORIDE 96 96 - 108 mmol/L [facility] CO2 25 21 - 35 mmol/L [facility] BUN 16 6 - 19 mg/dL [facility] CREATININE 0.90 0.5 - 1.5 mg/dL [facility] GLUCOSE 105(H) 70 - 99 mg/dL [facility] ALBUMIN 4.6 3.9 - 4.8 g/dL [facility] TOTAL PROTEIN 7.7 6.5 - 8.0 g/dL [facility] CALCIUM 9.4 8.4 - 10.3 mg/dL [facility] ALKALINE PHOSPHATASE 62 39 - 117 U/L [facility] TOTAL BILIRUBIN 0.6 0.0 - 1.2 mg/dL [facility] AST 29 0 - 37 U/L [facility] ALT 33 0 - 40 U/L [facility] GLOBULIN 3.1 1 - 4.8 g/dL [facility] EGFR 97 >59 mL/min/1.7 3m2 [facility] Comment:If patient is black, multiply result by 1.159. Estimated glomerular filtration rate calculated using the CKD-EPI equation. ANION GAP 19 10 - 20 mmol/L [facility] Blood 01/28/2018 8:29 AM EDT 01/28/2018 8:31 AM EDT us Mery Kaplan MD LAB BLOOD ORDERABLES Final Re sult [facility] [address] [place] [address] documented in this encounter Visit Diagnoses Diagnosis Routine general medical examination at a health care facility- Primary Pure hypercholesterolemia Essential hypertension, malignant Impaired fasting glucose documented in this encounter Care Teams Fruit Harvest Worker Relationship Specialty Start Date End Date Mery Kaplan MD [address] [place] [phone] PCP - General Internal Medicine 09/24/17 documented as of this encounter Additional Source Comments The information contained in this document represents components of the legal health record. It is not the complete legal health record.[facility]
--- OUTSIDE RECORDS SUMMARY | 2024-12-14 16:01 | XMS_ITS | Patient Health Record ---
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 Name Role Phone Mery Kaplan MD Primary Care Provider Quinton Roque [phone] Allergies Allergen (clinical drug ingredient) Drug/Non Drug [...] Problem Status W/U Status Risk Notes Problem [id number] Encounter for screening for malignant neoplasm of colon (Z12.11) Active confirmed Problem Screening for malignant neoplasm of rectum (923673927) Encounter for screening for malignant neoplasm of rectum (Z12.12) Active confirmed Problem [id number] Preprocedural examination (Z01.818) Active confirmed Plan Of Treatment Pending Test Test Name Order Date GI BIOPSY 02/21/2016 Future Test Test Name Order Date COLONOSCOPY 11/29/2015 Insurance Providers Payer Name Payer Address Payer Phone Subscriber Number Group Number Insured Name Patient Relationship to Insured Coverage Start Date Coverage End Date [facility] [address] [place] [phone] [id number] REVASHEEBAO Self - patient is the insured Medical (General) History Medical History History ICD Code Denies NE,DM,CVA,Lung disease,renal dise ase HTN Surgical History Surgery Date(Month/Year) Tonsillectomy
[2024-12-14 16:02] VITALS: BP 112/70; PULSE 99; O2SAT 98
== END 2024-12-14 16:32 | disposition home or self-care (01) ==
LOC: HO.HMCH 15:58
PROVIDERS: PCP Internal Medicine
DX: Z00.00 Encounter for general adult medical examination without abnormal findings (principal); I10 Essential (primary) hypertension; E78.1 Pure hyperglyceridemia; R73.02 Impaired glucose tolerance (oral); K76.0 Fatty (change of) liver, not elsewhere classified; D64.9 Anemia, unspecified; K42.9 Umbilical hernia without obstruction or gangrene

== ENCOUNTER → 2024-12-14 15:58 | Outpatient (BNVA) | payer OTHER, SELFPAY | PROVIDERS: PCP Internal Medicine | DX: Z00.00 Encounter for general adult medical examination without abnormal findings (principal); I10 Essential (primary) hypertension; E78.1 Pure hyperglyceridemia; R73.02 Impaired glucose tolerance (oral); K76.0 Fatty (change of) liver, not elsewhere classified; K42.9 Umbilical hernia without obstruction or gangrene; D64.9 Anemia, unspecified | CPT/HCPCS: 96127 ==